=== PATIENT | male | born 1945 | race African-American/Black ===

== ENCOUNTER 2016-03-23 05:30 | Day surgery (SDC) | payer MEDICARE, OTHER ==
[2016-03-22 13:44] LABS: INR 0.94 (0.85-1.17); PROTIME 12.4 SECONDS (11.6-15.0)
[2016-03-22 14:16] LABS: BASOPHILS 0.5 % (0.0-2.0); EOSINOPHILS 5.3 % (0-7); HEMATOCRIT 40.3 % (42.0-54.0); HEMOGLOBIN 13.6 g/dL (13.5-17.5); IMMATURE GRANULOCYTES 0.3 % (0-5); LYMPHOCYTES 38.5 % (15-50); MCHC 33.7 g/dL (31.0-37.0); MEAN PLATELET VOLUME 10.9 fL (7.4-10.4); MONOCYTES 8.2 % (2-11); NEUTROPHILS 47.2 % (40-80); PLATELET COUNT 249 10x3/uL (130-400); RBC 4.53 10x6/uL (4.20-6.10); RDW 15.1 % (11.5-14.5); WBC 6.6 10x3/uL (4.8-10.8)
[~2016-03-23] VITALS: Ht 177.8 cm; Wt 74.8 kg
[~2016-03-23 05:30] MED LIST: ADVAIR 250/501 DISK INH; COMBIVENT RESPIM4 GM INH; NORVASC10 MG PO; PROAIR HFA8.5 GM INH
[2016-03-23] MEDS ORDERED: PREDNISONE10 MG (06:55)
[2016-03-23 07:00] VITALS: BP 148/86; Ht 177.8 cm; Wt 74.8 kg
[2016-03-23] MEDS ORDERED: HYDROCODONE-APA1 TAB PO (10:48)
--- NOTE | 2016-04-07 13:33 | OP ---
PATIENT NAME: MELINA IVORY MEDICAL RECORD: [id number] :45 LOCATION:D.OPS ADMISSION DATE: SURGEON: HERMANN MARTINEZ MD DATE OF OPERATION: 03/23/2016 PREOPERATIVE DIAGNOSES: 1. Lung cancer. 2. Hypercholesterolemia. 3. Chronic obstructive pulmonary disease. 4. Hypertension. POSTOPERATIVE DIAGNOSES: 1. Lung cancer. 2. Hypercholesterolemia. 3. Chronic obstructive pulmonary disease. 4. Hypertension. PROCEDURE: Left subclavian vein PowerPort placement. SURGEON: Hermann Martinez MD. OPERATIVE PROCEDURE: The patient's left chest was prepped and draped in sterile fashion. A needle was used to cannulate the left subclavian vein. The guidewire was advanced with ease. Fluoro was used to note that the wire was in good position in the venous system. A skin incision was made on the left lateral chest and a subcutaneous pouch was made overlying the pectoral fascia. The catheter was then tunneled between this pouch and the wire exit site. The port was sutured to the pectoral fascia using interrupted 2-0 Prolenes. The catheter was then cut with a beveled tip at 21 cm. The dilator trocar device was placed over the wire and the wire and dilator were removed. The catheter tip was advanced through the trocar with ease and the trocar was removed. At this point, the catheter was flushed and it aspirated nonpulsatile dark blood easily. The subcutaneous tissues were reapproximated with interrupted 3-0 Vicryl and the skin was closed with running subcutaneous 5-0 Monocryl. COMPLICATIONS: None. CONDITION: Stable. ANESTHESIA: General endotracheal and local. BLOOD LOSS: Minimal. TRANSINT:[id number] Voice Confirmation ID: [id number] DOCUMENT ID: [id number] HERMANN MATRINEZ MD at 1333 CC: KIMMY FRANK MD, CRISTINO MORGAN MD and ADDISON ALMODOVAR [id number] DICTATION DATE: 03/23/16 1052 DIRECTOR REGULATORY AFFAIRS: 03/23/16 1137 [facility] 03/23/16 [place] [address]
== END 2016-03-23 12:50 | disposition home or self-care (01) ==
LOC: D.OPS 05:30
PROVIDERS: Anesthesiology
DX: C34.90 Malignant neoplasm of unspecified part of unspecified bronchus or lung (principal); E78.00 Pure hypercholesterolemia, unspecified; J44.9 Chronic obstructive pulmonary disease, unspecified; I10 Essential (primary) hypertension

== ENCOUNTER → 2016-03-28 14:09 | Outpatient (CLI) | payer MEDICARE, OTHER ==
[2016-03-23 07:00] VITALS: BMI 23.7
[~2016-03-28 14:09] MED LIST changes: +HYDROCODONE-APA1 TAB PO; +PREDNISONE10 MG
== END | disposition home or self-care (01) ==
LOC: D.RT 03-22 09:00
DX: C34.90 Malignant neoplasm of unspecified part of unspecified bronchus or lung (principal)

== ENCOUNTER → 2016-06-02 08:42 | Outpatient (CLI) | payer MEDICARE, OTHER ==
[2016-03-23 07:00] VITALS: BMI 23.7
== END | disposition home or self-care (01) ==
LOC: D.CT 08:42
DX: C34.90 Malignant neoplasm of unspecified part of unspecified bronchus or lung (principal)

== ENCOUNTER 2016-09-28 11:48 | Emergency (ER) | payer MEDICARE, OTHER ==
[2016-03-23 07:00] VITALS: BMI 23.7
[2016-09-28 13:13] LABS: BASOPHILS 0.3 % (0-2); EOSINOPHILS 0.3 % (0-7); HEMATOCRIT 37.7 % (42.0-54.0); HEMOGLOBIN 13.1 g/dL (13.5-17.5); IMMATURE GRANULOCYTES 0.6 % (0-5); LYMPHOCYTES 13.5 % (15-50); MCHC 34.7 g/dL (31.0-37.0); MCV 89.1 fL (80.0-100.0); MONOCYTES 10.7 % (2-11); NEUTROPHILS 74.6 % (40-80); RBC 4.23 10x6/uL (4.20-6.10); WBC 3.2 10x3/uL (4.8-10.8)
[2016-09-28 13:18] LABS: PLATELET COUNT 193 10x3/uL (130-400)
[2016-09-28 13:35] LABS: ALBUMIN 3.7 g/dL (3.4-5.0); ALKALINE PHOSPHATASE 78 U/L (46-116); ALT (SGPT) 20 U/L (10-68); CALC OSMOLALITY 270 mosm/kg (275-300); CALCIUM 9.2 mg/dL (8.5-10.1); CARBON DIOXIDE 29.7 mmol/L (21.0-32.0); CHLORIDE - SERUM 98 mmol/L (98-107); CREATININE - SERUM 0.9 mg/dL (0.6-1.3); GLUCOSE 121 mg/dL (74-106); POTASSIUM - SERUM 3.7 mmol/L (3.5-5.1); PROTEIN - SERUM 7.4 g/dL (6.4-8.2); SODIUM 136 mmol/L (136-145); UREA NITROGEN 8 mg/dL (7-18); eGFR NON AFRICAN AMERICAN 89 mL/min (90-120)
[2016-09-28 13:45] LABS: CHOL - HDL RATIO 3.6 ratio (2.3-4.9); CHOLESTEROL, TOTAL 235 mg/dL (0-200); CKMB 0.2 U/L (0.0-3.6); CREATINE KINASE 188 UL (21-232); HDL CHOLESTEROL 66 mg/dL (32-96); LDL CHOLESTEROL 160 mg/dL (0-100); LDL-HDL RATIO 2.4 ratio (1.5-3.5); TRIGLYCERIDE 47 mg/dL (30-200); TROPONIN-I < 0.017 ng/mL (0.000-0.060)
== END 2016-09-28 17:00 | disposition home or self-care (01) ==
LOC: D.ER 11:48
PROVIDERS: Emergency Medicine
DX: R07.9 Chest pain, unspecified (principal); I10 Essential (primary) hypertension; J44.9 Chronic obstructive pulmonary disease, unspecified; C34.90 Malignant neoplasm of unspecified part of unspecified bronchus or lung

== ENCOUNTER → 2016-12-22 09:32 | Outpatient (CLI) | payer MEDICARE, OTHER ==
[2016-03-23 07:00] VITALS: BMI 23.7
[~2016-12-22 09:32] MED LIST changes: +BENZONATATE200 MG PO; +COLACE100 MG PO; +ELIQUIS2.5 MG PO; +FLOMAX0.4 MG PO; +FLORAJEN3 CAPS460 MG PO; +FLUTICASONE PRO16 GM NASAL; +MUCINEX DM ER1 EAC1 PO; +OMNICEF300 MG PO; +OXYCODONE HCL5 MG PO; +PROSCAR5 MG PO
== END | disposition home or self-care (01) ==
LOC: D.CT 09:32
DX: C34.90 Malignant neoplasm of unspecified part of unspecified bronchus or lung (principal)

== ENCOUNTER 2017-02-27 13:05 | Inpatient (IN) | payer MEDICARE, OTHER ==
[~2017-02-27] VITALS: Ht 175.3 cm; Wt 74.8 kg
--- NOTE | ~2017-02-27 | OP ---
PATIENT NAME: MELINA IVORY MEDICAL RECORD: [id number] :45 LOCATION:D.MS [id number] ADMISSION DATE:02/27/17 SURGEON: CRISTINO MATUTE, DATE OF OPERATION: 02/28/2017 PROCEDURE PERFORMED: Left total hip arthroplasty. PREOPERATIVE DIAGNOSIS: Left femoral neck fracture. POSTOPERATIVE DIAGNOSIS: Left femoral neck fracture. INDICATIONS: Mr. Ivory is a 71-year-old male who fell onto his left hip approximately 5 days ago. He has been walking on it with somewhat difficulty and had extreme lateral pain, went to his primary care's office, was x-rayed and seen to have a left femoral neck fracture. He is direct admitted and I was consulted. He was given the option of a closed reduction and percutaneous pinning or total hip arthroplasty and explained the risks and benefits of each and he chose to have a total hip put in. After this was explained to him and the risks and benefits of that, he consented to the procedure. DESCRIPTION OF PROCEDURE: The patient was given a block by anesthesia in the preoperative area, taken to the operative suite, laid in the supine position, sedated and then intubated, and given a gram of Ancef preoperatively. He was then moved over to the Walker table. The boots put on and after this was done, the left hip was prepped and draped in sterile fashion. A timeout was performed and everybody was in agreement as the correct side, site and patient. After this was done, the incision commenced over the tensor fascia pipe and the left hip in an oblique fashion. Careful dissection was made down coagulating any bleeders to the tensor fascia, muscle fascia. This was incised and then with the fascia anteriorly and belly posteriorly. Then, the fascia over the rectus was then incised as well and then the rectus was taken medially and the tensor fascia laterally and the vessels of the ascending branch of the lateral femoral circumflex were encountered and tied off and coagulated with the Aquamantys and then cut. After this was done, the hip capsule was encountered. The fat was scraped off of it and Hohmanns were placed around the femoral neck. Capsulotomy was then performed. The capsule was quite thick. After this was done, the femoral neck was cut after the retractors were placed inside the capsule around the femoral neck. The leg was then externally rotated and the femoral head was taken out. After the femoral head was taken out, the acetabulum was exposed. Labrum was taken off as well as the ligamentum teres and the pulvinar. The reaming then began up to a 52. It seemed to be the correct size, reamed line to line and the cup was put into place under fluoroscopy to be in very good position. The liner was then placed on the cup and the femur was then exposed. Hook was put around the femur and the femur was externally rotated, adducted and extended with the traction off. We began broaching and broached up to a 13 and trialled it with a -3 neck and seen to be appropriate length compared to the other side. We then thought we may be able to get to a 14 and we did broach to a 14 and had very good fit with no motion. After the 14 seemed to fit well, we implanted the 14 and put a high offset neck on with a -3 head and the hip was reduced. X-rays were taken and seen to be in good position. No fracture was seen in the femur distally. After this was done, the wound was thoroughly irrigated. The capsule was closed with #2 Ethibond and then Rober was put in. Then, the tensor fascia was closed with 0 Vicryl, two [id number] and then a running stitch locked. Then, the skin was closed with Rober put on top. The tensor fascia pipe was closed with 2-0 OPERATIVE REPORT [id number] MELINA IVORY Vicryl in an inverted interrupted fashion. Prineo was placed over the skin incision, and Telfa and Tegaderm were placed on top of that. Blood loss was approximately 100 mL. The patient tolerated the procedure well, was awakened, and taken to the recovery room in stable condition. Complications were none. TRANSINT:[id number] Voice Confirmation ID: [id number] DOCUMENT ID: [id number] CRISTINO MATUTE DO at 0811 CC: [id number] DICTATION DATE: 02/28/17 1454 AGRONOMY MANAGER: 02/28/17 1805 ADM IN [facility] [address] [place] [address]
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
[~2017-02-27 13:05] MED LIST changes: -BENZONATATE200 MG PO; -COLACE100 MG PO; -ELIQUIS2.5 MG PO; -FLOMAX0.4 MG PO; -FLORAJEN3 CAPS460 MG PO; -FLUTICASONE PRO16 GM NASAL; -MUCINEX DM ER1 EAC1 PO; -OMNICEF300 MG PO; -OXYCODONE HCL5 MG PO; -PROSCAR5 MG PO
[2017-02-27] MEDS ORDERED: BENZONATATE200 MG PO (13:58)
[2017-02-27 16:31] VITALS: BP 146/112
[2017-02-27 18:58] LABS: BASOPHILS 0.3 % (0-2); HEMATOCRIT 31.9 % (42.0-54.0); HEMOGLOBIN 10.4 g/dL (13.5-17.5); IMMATURE GRANULOCYTES 0.3 % (0-5); LYMPHOCYTES 14.5 % (15-50); MCH 29.5 pg (26.0-34.0); MCHC 32.6 g/dL (31.0-37.0); MCV 90.4 fL (80.0-100.0); NEUTROPHILS 69.9 % (40-80); RBC 3.53 10x6/uL (4.20-6.10); WBC 6.7 10x3/uL (4.8-10.8)
[2017-02-27 19:02] LABS: PLATELET COUNT 262 10x3/uL (130-400)
[2017-02-27 19:10] LABS: ALBUMIN 3.1 g/dL (3.4-5.0); ALKALINE PHOSPHATASE 71 U/L (46-116); ALT (SGPT) 21 U/L (10-68); BILIRUBIN - TOTAL 0.35 mg/dL (0.2-1.3); CALC OSMOLALITY 281 mosm/kg (275-300); CALCIUM 9.2 mg/dL (8.5-10.1); CHLORIDE - SERUM 104 mmol/L (98-107); GLUCOSE 92 mg/dL (74-106); PROTEIN - SERUM 6.6 g/dL (6.4-8.2); SODIUM 142 mmol/L (136-145); UREA NITROGEN 10 mg/dL (7-18); eGFR NON AFRICAN AMERICAN 78 mL/min (90-120)
[2017-02-27 19:14] LABS: POTASSIUM - SERUM 2.8 mmol/L (3.5-5.1)
[2017-02-27 20:24] VITALS: BP 117/64
[2017-02-27 23:39] VITALS: BP 107/69
[2017-02-28 00:50] VITALS: BMI 24.4
[2017-02-28 06:46] LABS: CALCIUM 9.1 mg/dL (8.5-10.1); CARBON DIOXIDE 25.8 mmol/L (21.0-32.0); CHLORIDE - SERUM 106 mmol/L (98-107); CREATININE - SERUM 0.9 mg/dL (0.6-1.3); SODIUM 143 mmol/L (136-145); eGFR NON AFRICAN AMERICAN 88 mL/min (90-120)
[2017-02-28 06:54] LABS: PHOSPHOROUS 2.8 mg/dL (2.5-4.9)
[2017-02-28 06:55] LABS: GLUCOSE 98 mg/dL (74-106); MAGNESIUM - SERUM 1.6 mg/dL (1.8-2.4)
[2017-02-28 07:00] LABS: CALC OSMOLALITY 282 mosm/kg (275-300); UREA NITROGEN 7 mg/dL (7-18)
[2017-02-28 07:54] VITALS: BP 125/65
[2017-02-28 11:38] VITALS: BP 125/74
[2017-02-28 13:20] VITALS: BMI 24.3
[2017-02-28 15:59] VITALS: BP 126/69
[2017-02-28 16:01] VITALS: BP 126/69
[2017-02-28 22:12] VITALS: BP 131/80
[2017-03-01 01:32] VITALS: BP 100/63
[2017-03-01 05:10] LABS: BASOPHILS 0 % (0-2); EOSINOPHILS 0 % (0-7); HEMATOCRIT 31.6 % (42.0-54.0); HEMOGLOBIN 10.5 g/dL (13.5-17.5); IMMATURE GRANULOCYTES 0.3 % (0-5); LYMPHOCYTES 4.4 % (15-50); MCH 29.9 pg (26.0-34.0); MCHC 33.2 g/dL (31.0-37.0); MEAN PLATELET VOLUME 9.6 fL (7.4-10.4); MONOCYTES 8.1 % (2-11); NEUTROPHILS 87.2 % (40-80); PLATELET COUNT 243 10x3/uL (130-400); RBC 3.51 10x6/uL (4.20-6.10); RDW 14.9 % (11.5-14.5)
[2017-03-01 05:12] LABS: WBC 11.2 10x3/uL (4.8-10.8)
[2017-03-01 05:59] LABS: ANION GAP 16.7 mmol/L (8-16); CALCIUM 8.7 mg/dL (8.5-10.1); MAGNESIUM - SERUM 1.6 mg/dL (1.8-2.4); POTASSIUM - SERUM 3.7 mmol/L (3.5-5.1)
[2017-03-01 06:00] LABS: CREATININE - SERUM 1.2 mg/dL (0.6-1.3)
[2017-03-01 06:33] VITALS: BP 120/75
[2017-03-01 09:20] VITALS: BP 135/70
[2017-03-01 12:20] VITALS: BP 120/67
[2017-03-01 16:34] VITALS: BP 135/70
[2017-03-01 19:33] LABS: APPEARANCE CLEAR (CLEAR); COLOR YELLOW (YELLOW); NITRITE NEGATIVE (NEGATIVE); PROTEIN NEGATIVE (NEGATIVE); SPECIFIC GRAVITY 1.005 (1.005-1.020)
[2017-03-01 19:34] LABS: BILIRUBIN NEGATIVE (NEGATIVE); GLUCOSE NEGATIVE (NEGATIVE); KETONE MODERATE mg/dL (NEGATIVE); UROBILINOGEN NORMAL (NORMAL)
[2017-03-01 19:36] LABS: BACTERIA FEW /hpf (NONE SEEN); WHITE CELLS - URINE OCC /hpf (0-5)
[2017-03-01 20:54] VITALS: BP 95/55
[2017-03-02] VITALS (7 sets, daily range): BP systolic 100–137; BP diastolic 61–70
[2017-03-02 06:48] LABS: CALC OSMOLALITY 276 mosm/kg (275-300); CARBON DIOXIDE 27.4 mmol/L (21.0-32.0); CHLORIDE - SERUM 102 mmol/L (98-107); CREATININE - SERUM 0.9 mg/dL (0.6-1.3); GLUCOSE 126 mg/dL (74-106); MAGNESIUM - SERUM 1.5 mg/dL (1.8-2.4); PHOSPHOROUS 1.7 mg/dL (2.5-4.9); SODIUM 138 mmol/L (136-145); UREA NITROGEN 9 mg/dL (7-18); eGFR NON AFRICAN AMERICAN 88 mL/min (90-120)
[2017-03-02 06:52] LABS: POTASSIUM - SERUM 2.8 mmol/L (3.5-5.1)
[2017-03-02 07:06] LABS: BASOPHILS 0 % (0-2); EOSINOPHILS 0.6 % (0-7); HEMATOCRIT 27.2 % (42.0-54.0); HEMOGLOBIN 9.3 g/dL (13.5-17.5); IMMATURE GRANULOCYTES 0.3 % (0-5); LYMPHOCYTES 7.3 % (15-50); MCH 30.4 pg (26.0-34.0); MCHC 34.2 g/dL (31.0-37.0); MCV 88.9 fL (80.0-100.0); MEAN PLATELET VOLUME 9.8 fL (7.4-10.4); NEUTROPHILS 80.8 % (40-80); PLATELET COUNT 215 10x3/uL (130-400); RBC 3.06 10x6/uL (4.20-6.10); RDW 14.8 % (11.5-14.5); WBC 10.1 10x3/uL (4.8-10.8)
[2017-03-03] VITALS: BP 160/67
[2017-03-03 04:00] VITALS: BP 111/67
[2017-03-03 05:43] LABS: CALC OSMOLALITY 274 mosm/kg (275-300); CARBON DIOXIDE 27.8 mmol/L (21.0-32.0); CHLORIDE - SERUM 103 mmol/L (98-107); CREATININE - SERUM 0.9 mg/dL (0.6-1.3); GLUCOSE 116 mg/dL (74-106); MAGNESIUM - SERUM 1.6 mg/dL (1.8-2.4); POTASSIUM - SERUM 3.1 mmol/L (3.5-5.1); SODIUM 138 mmol/L (136-145); UREA NITROGEN 7 mg/dL (7-18); eGFR NON AFRICAN AMERICAN 88 mL/min (90-120)
[2017-03-03 05:47] LABS: BASOPHILS 0.1 % (0-2); EOSINOPHILS 3.6 % (0-7); HEMATOCRIT 25.5 % (42.0-54.0); HEMOGLOBIN 8.4 g/dL (13.5-17.5); IMMATURE GRANULOCYTES 0.1 % (0-5); LYMPHOCYTES 11.1 % (15-50); MCH 29.4 pg (26.0-34.0); MCHC 32.9 g/dL (31.0-37.0); MCV 89.2 fL (80.0-100.0); MEAN PLATELET VOLUME 9.2 fL (7.4-10.4); NEUTROPHILS 74.1 % (40-80); PLATELET COUNT 188 10x3/uL (130-400); RBC 2.86 10x6/uL (4.20-6.10); RDW 14.7 % (11.5-14.5); WBC 8.7 10x3/uL (4.8-10.8)
[2017-03-03 12:23] VITALS: BP 114/58
[2017-03-03 15:48] VITALS: BP 116/63
[2017-03-03 20:00] VITALS: BP 110/64
[2017-03-03 23:53] VITALS: BP 111/63
[2017-03-04 05:10] VITALS: BP 115/77
[2017-03-04 05:49] LABS: HEMATOCRIT 24.6 % (42.0-54.0); HEMOGLOBIN 8.4 g/dL (13.5-17.5); LYMPHOCYTES 9.9 % (15-50); MCH 30.5 pg (26.0-34.0); MCHC 34.1 g/dL (31.0-37.0); MCV 89.5 fL (80.0-100.0); MEAN PLATELET VOLUME 9.5 fL (7.4-10.4); NEUTROPHILS 73.4 % (40-80); PLATELET COUNT 215 10x3/uL (130-400); RBC 2.75 10x6/uL (4.20-6.10); RDW 15.7 % (11.5-14.5); WBC 6.3 10x3/uL (4.8-10.8)
[2017-03-04 05:50] LABS: CALC OSMOLALITY 273 mosm/kg (275-300); CALCIUM 8.1 mg/dL (8.5-10.1); CARBON DIOXIDE 29.2 mmol/L (21.0-32.0); CHLORIDE - SERUM 105 mmol/L (98-107); CREATININE - SERUM 0.8 mg/dL (0.6-1.3); GLUCOSE 107 mg/dL (74-106); SODIUM 138 mmol/L (136-145); UREA NITROGEN 6 mg/dL (7-18); eGFR NON AFRICAN AMERICAN > 90 mL/min (90-120)
[2017-03-04 05:51] LABS: POTASSIUM - SERUM 3.5 mmol/L (3.5-5.1)
[2017-03-04 08:42] VITALS: BP 120/67
[2017-03-04 12:21] VITALS: Ht 175.3 cm; Wt 74.8 kg
[2017-03-04 12:27] VITALS: BP 132/69
[2017-03-04 13:32] LABS: % SATURATION 12 % (15-55); IRON 19 ug/dl (35-150); TOTAL IRON BIND CAPACITY 149 ug/dl (260-445); UNSAT IRON BIND CAPACITY 130 ug/dl (150-375)
[2017-03-04 16:30] VITALS: BP 127/69
[2017-03-04 20:00] VITALS: BP 136/68
[2017-03-05] VITALS: BP 118/69
[2017-03-05 04:00] VITALS: BP 114/67
[2017-03-05 05:48] LABS: BASOPHILS 0.3 % (0-2); EOSINOPHILS 6.4 % (0-7); HEMATOCRIT 24.3 % (42.0-54.0); IMMATURE GRANULOCYTES 0.2 % (0-5); LYMPHOCYTES 12.9 % (15-50); MCH 29.1 pg (26.0-34.0); MCHC 32.9 g/dL (31.0-37.0); MCV 88.4 fL (80.0-100.0); MEAN PLATELET VOLUME 9.6 fL (7.4-10.4); MONOCYTES 13.6 % (2-11); NEUTROPHILS 66.6 % (40-80); PLATELET COUNT 238 10x3/uL (130-400); RBC 2.75 10x6/uL (4.20-6.10); RDW 14.9 % (11.5-14.5); WBC 5.8 10x3/uL (4.8-10.8)
[2017-03-05 06:18] LABS: CALC OSMOLALITY 272 mosm/kg (275-300); CALCIUM 8.4 mg/dL (8.5-10.1); CARBON DIOXIDE 27.1 mmol/L (21.0-32.0); CHLORIDE - SERUM 104 mmol/L (98-107); CREATININE - SERUM 0.8 mg/dL (0.6-1.3); GLUCOSE 106 mg/dL (74-106); POTASSIUM - SERUM 3.3 mmol/L (3.5-5.1); SODIUM 138 mmol/L (136-145); UREA NITROGEN 5 mg/dL (7-18); eGFR NON AFRICAN AMERICAN > 90 mL/min (90-120)
[2017-03-05 08:45] VITALS: BP 124/77
[2017-03-05 11:22] LABS: POTASSIUM - SERUM 3.6 mmol/L (3.5-5.1); VANCOMYCIN - TROUGH 8.3 ug/mL (10.0-20.0)
[2017-03-05 12:37] VITALS: BP 122/81
[2017-03-05 17:51] VITALS: BP 120/64
[2017-03-05 20:00] VITALS: BP 118/69
[2017-03-06 04:00] VITALS: BP 115/68
[2017-03-06 04:53] LABS: BASOPHILS 0 % (0-2); EOSINOPHILS 7.2 % (0-7); HEMATOCRIT 24.3 % (42.0-54.0); HEMOGLOBIN 8.4 g/dL (13.5-17.5); IMMATURE GRANULOCYTES 0.2 % (0-5); LYMPHOCYTES 15.7 % (15-50); MCH 30.9 pg (26.0-34.0); MCHC 34.6 g/dL (31.0-37.0); MCV 89.3 fL (80.0-100.0); MEAN PLATELET VOLUME 9.6 fL (7.4-10.4); MONOCYTES 11.6 % (2-11); NEUTROPHILS 65.3 % (40-80); PLATELET COUNT 241 10x3/uL (130-400); RBC 2.72 10x6/uL (4.20-6.10); RDW 14.7 % (11.5-14.5); WBC 5.7 10x3/uL (4.8-10.8)
[2017-03-06 05:12] LABS: CALC OSMOLALITY 276 mosm/kg (275-300); CALCIUM 8.8 mg/dL (8.5-10.1); CARBON DIOXIDE 27.8 mmol/L (21.0-32.0); CHLORIDE - SERUM 105 mmol/L (98-107); CREATININE - SERUM 0.8 mg/dL (0.6-1.3); GLUCOSE 117 mg/dL (74-106); POTASSIUM - SERUM 3.5 mmol/L (3.5-5.1); SODIUM 139 mmol/L (136-145); UREA NITROGEN 6 mg/dL (7-18); eGFR NON AFRICAN AMERICAN > 90 mL/min (90-120)
[2017-03-06 08:25] LABS: FOLATE (FOLIC ACID) - SERUM 3.1 ng/mL (>3.0)
[2017-03-06 09:29] VITALS: BP 141/75
[2017-03-06] MEDS ORDERED: ELIQUIS2.5 MG PO (10:55)
[2017-03-06] MEDS ORDERED: MUCINEX DM ER1 EAC1 PO (10:56)
[2017-03-06] MEDS ORDERED: FLUTICASONE PRO16 GM NASAL (10:56)
[2017-03-06] MEDS ORDERED: COLACE100 MG PO (10:56)
[2017-03-06] MEDS ORDERED: PROSCAR5 MG PO (10:57)
[2017-03-06] MEDS ORDERED: OMNICEF300 MG PO (11:00)
[2017-03-06] MEDS ORDERED: FLORAJEN3 CAPS460 MG PO (11:01)
[2017-03-06] MEDS ORDERED: FLOMAX0.4 MG PO (11:02)
[2017-03-06] MEDS ORDERED: OXYCODONE HCL5 MG PO (13:50)
== END 2017-03-06 14:35 | disposition home or self-care (01) | DRG 469 ==
LOC: D.MS 13:05
PROVIDERS: Family Medicine; Internal Medicine Nephrology; Internal Medicine Pulmonary Disease; Legal Medicine; Orthopaedic Surgery
PROC: 0SRB0JZ Replacement of Left Hip Joint with Synthetic Substitute, Open Approach (ICD-10-PCS; principal; 2017-02-28 12:00)
DX: S72.002A Fracture of unspecified part of neck of left femur, initial encounter for closed fracture (principal); J18.9 Pneumonia, unspecified organism; J96.11 Chronic respiratory failure with hypoxia; C34.12 Malignant neoplasm of upper lobe, left bronchus or lung; J44.0 Chronic obstructive pulmonary disease with (acute) lower respiratory infection; J98.11 Atelectasis; W19.XXXA Unspecified fall, initial encounter; I10 Essential (primary) hypertension; J30.9 Allergic rhinitis, unspecified; F41.9 Anxiety disorder, unspecified; J20.9 Acute bronchitis, unspecified; D64.9 Anemia, unspecified; R50.82 Postprocedural fever; E87.6 Hypokalemia; E78.5 Hyperlipidemia, unspecified; E88.01 Alpha-1-antitrypsin deficiency; N40.1 Benign prostatic hyperplasia with lower urinary tract symptoms; R33.8 Other retention of urine; R00.0 Tachycardia, unspecified; Z87.891 Personal history of nicotine dependence

== ENCOUNTER 2017-03-29 05:40 | Day surgery (SDC) | payer MEDICARE, OTHER | END 2017-03-29 09:35 | disposition home or self-care (01) | LOC: D.OPS 05:40 | DX: R97.20 Elevated prostate specific antigen [PSA] (principal); R33.8 Other retention of urine; N40.1 Benign prostatic hyperplasia with lower urinary tract symptoms; J44.9 Chronic obstructive pulmonary disease, unspecified; I10 Essential (primary) hypertension; Z01.812 Encounter for preprocedural laboratory examination ==

== ENCOUNTER → 2017-05-23 13:31 | Outpatient (CLI) | payer MEDICARE, OTHER ==
[2017-03-29 06:11] VITALS: BMI 24.5
[~2017-05-23 13:31] MED LIST changes: +BENZONATATE200 MG PO; +COLACE100 MG PO; +CRESTOR10 MG PO; +ELIQUIS2.5 MG PO; +FLOMAX0.4 MG PO; +FLORAJEN3 CAPS460 MG PO; +FLUTICASONE PRO16 GM NASAL; +FUROSEMIDE20 MG PO; +MUCINEX DM ER1 EAC1 PO; +OMNICEF300 MG PO; +OXYCODONE HCL5 MG PO; +POTASSIUM CHLO20 MEQ PO; +PROSCAR5 MG PO
== END | disposition home or self-care (01) ==
LOC: D.US 13:30
DX: R22.1 Localized swelling, mass and lump, neck (principal); R60.0 Localized edema

== ENCOUNTER 2017-06-07 09:44 | Emergency (ER) | payer MEDICARE, OTHER ==
[2017-03-29 06:11] VITALS: BMI 24.5
[2017-06-07 11:09] LABS: HEMATOCRIT 24.5 % (42.0-54.0); MCH 27.1 pg (26.0-34.0); MCHC 32.7 g/dL (31.0-37.0); MCV 83.1 fL (80.0-100.0); MEAN PLATELET VOLUME 9.6 fL (7.4-10.4); RBC 2.95 10x6/uL (4.20-6.10); RDW 18.1 % (11.5-14.5); WBC 3.2 10x3/uL (4.8-10.8)
[2017-06-07 11:32] LABS: PLATELET COUNT 165 10x3/uL (130-400)
[2017-06-07 11:35] LABS: INR 1.44 (0.85-1.17)
[2017-06-07 11:36] LABS: APTT 42.9 SECONDS (22.8-39.4); EOSINOPHILS 3 % (0-7); LYMPHOCYTES 30 % (15-50); MONOCYTES 13 % (2-11); NEUTROPHILS 53 % (40-80); PLATELET ESTIMATE NORMAL
[2017-06-07 11:39] LABS: ALBUMIN 2.5 g/dL (3.4-5.0); ALKALINE PHOSPHATASE 61 U/L (46-116); ALT (SGPT) 24 U/L (10-68); BILIRUBIN - TOTAL 0.41 mg/dL (0.2-1.3); CALC OSMOLALITY 271 mosm/kg (275-300); CALCIUM 8.6 mg/dL (8.5-10.1); CARBON DIOXIDE 26.9 mmol/L (21.0-32.0); CHLORIDE - SERUM 99 mmol/L (98-107); GLUCOSE 119 mg/dL (74-106); POTASSIUM - SERUM 3.2 mmol/L (3.5-5.1); PROTEIN - SERUM 6.9 g/dL (6.4-8.2); SODIUM 136 mmol/L (136-145); UREA NITROGEN 11 mg/dL (7-18); eGFR NON AFRICAN AMERICAN 78 mL/min (90-120)
[2017-06-07 11:48] LABS: CREATINE KINASE 25 UL (21-232)
[2017-06-07 11:52] LABS: TROPONIN-I < 0.017 ng/mL (0.000-0.060)
== END 2017-06-07 14:55 | disposition home or self-care (01) ==
LOC: D.ER 09:44
PROVIDERS: Emergency Medicine
DX: J18.9 Pneumonia, unspecified organism (principal); R07.81 Pleurodynia; C34.90 Malignant neoplasm of unspecified part of unspecified bronchus or lung; Z86.718 Personal history of other venous thrombosis and embolism; E87.6 Hypokalemia

== ENCOUNTER → 2017-10-16 12:55 | Outpatient (CLI) | payer MEDICARE, OTHER ==
[2017-03-29 06:11] VITALS: BMI 24.5
== END | disposition home or self-care (01) ==
LOC: D.MRI 12:55
DX: M54.16 Radiculopathy, lumbar region (principal)

== ENCOUNTER 2018-04-16 23:28 | Inpatient (IN) | payer MEDICARE, OTHER ==
[~2018-04-16] VITALS: Ht 175.3 cm; Wt 53.6 kg
[2018-04-16] MEDS ORDERED: LIPITOR10 MG PO (23:44)
[2018-04-16] MEDS ORDERED: FOLIC ACID1 MG PO (23:44)
[2018-04-16] MEDS ORDERED: SINGULAIR10 MG PO (23:45)
[2018-04-16] MEDS ORDERED: PROSCAR5 MG PO (23:45)
[2018-04-16] MEDS ORDERED: DECADRON4 MG PO (23:46)
[2018-04-16] MEDS ORDERED: MEGACE40 MG PO (23:46)
[2018-04-16] MEDS ORDERED: KLOR-CON 1010 MEQ PO (23:47)
[2018-04-16] MEDS ORDERED: ELIQUIS2.5 MG PO (23:47)
[2018-04-16] MEDS ORDERED: ULTRAM50 MG PO (23:47)
[2018-04-16] MEDS ORDERED: FLOMAX0.4 MG PO (23:47)
[2018-04-17] VITALS (23 sets, daily range): BP systolic 110–158; BP diastolic 63–96; Ht 175.3 cm; Wt 53.6 kg
[2018-04-17] LABS: HEMATOCRIT 27.2 % (42.0-54.0); HEMOGLOBIN 8.4 g/dL (13.5-17.5); LYMPHOCYTES 5.7 % (15-50); MCH 27.2 pg (26.0-34.0); MCHC 30.9 g/dL (31.0-37.0); MEAN PLATELET VOLUME 8.8 fL (7.4-10.4); NEUTROPHILS 84.9 % (40-80); RBC 3.09 10x6/uL (4.20-6.10); RDW 20.8 % (11.5-14.5); WBC 7.3 10x3/uL (4.8-10.8)
[2018-04-17 00:03] LABS: PLATELET COUNT 567 10x3/uL (130-400)
[2018-04-17 00:08] LABS: INR 1.37 (0.85-1.17); PROTIME 16.3 SECONDS (11.6-15.0)
[2018-04-17 00:21] LABS: APPEARANCE CLEAR (CLEAR); BILIRUBIN NEGATIVE (NEGATIVE); COLOR YELLOW (YELLOW); GLUCOSE NEGATIVE (NEGATIVE); KETONE NEGATIVE (NEGATIVE); NITRITE NEGATIVE (NEGATIVE); PROTEIN 2+ mg/dL (NEGATIVE); UROBILINOGEN NORMAL (NORMAL)
[2018-04-17 00:24] LABS: BACTERIA FEW /hpf (NONE SEEN); EPITHELIAL CELLS 0-5 /hpf (0-5); HYALINE CAST 0-5 /lpf (NONE SEEN); RED CELLS - URINE 0-5 /hpf (0-5); WHITE CELLS - URINE 0-5 /hpf (0-5)
[2018-04-17 00:31] LABS: ALBUMIN 2.5 g/dL (3.4-5.0); ALKALINE PHOSPHATASE 95 U/L (46-116); ALT (SGPT) 19 U/L (10-68); CALC OSMOLALITY 286 mosm/kg (275-300); CALCIUM 9.4 mg/dL (8.5-10.1); CARBON DIOXIDE 31.9 mmol/L (21.0-32.0); CHLORIDE - SERUM 99 mmol/L (98-107); CKMB 4.8 U/L (0.0-3.6); CREATINE KINASE 213 UL (21-232); CREATININE - SERUM 1.3 mg/dL (0.6-1.3); GLUCOSE 131 mg/dL (74-106); LIPASE 78 U/L (73-393); MAGNESIUM - SERUM 1.6 mg/dL (1.8-2.4); PRO BNP 2665 pg/mL (0-125); PROTEIN - SERUM 7.9 g/dL (6.4-8.2); SODIUM 142 mmol/L (136-145); UREA NITROGEN 19 mg/dL (7-18); eGFR NON AFRICAN AMERICAN 58 mL/min (90-120)
--- NOTE | 2018-04-17 00:37 | NUR ---
ANTIBIOTIC STARTED AFTER BLOOD CULTURES WERE DRAWN BY LAB
[2018-04-17 00:39] LABS: POTASSIUM - SERUM 2.7 mmol/L (3.5-5.1)
--- NOTE | 2018-04-17 01:34 | NUR ---
PT GONE TO CT
--- NOTE | 2018-04-17 02:08 | NUR ---
PT RETURNED FROM CT
--- NOTE | 2018-04-17 02:55 | NUR ---
NOTIFIED DR. MATTHEWS THAT PT FAMILY WANTED TO SPEAK WITH HIM.
--- NOTE | 2018-04-17 04:50 | NUR ---
PT RECEIVED FROM ER VIA BED ACCOMPANIED BY STAFF. ASSISTED INTO BED CONNECTED TO STANDARD ICU MONITORS WITH ALL ALARMS SET AND VERIFIED. ORIENTED TO ROOM AND CALL LIGHT LEFT IN HAND. PT CONFUSED WITH SPEECH DIFFICULT TO UNDERSTAND. LOOSE NONPRODUCTIVE COUGH NOTED. WHEN REPEATED SELF SPEECH CLEARS AND ABLE TO EASILY BE UNDERSTOOD BUT PT CONTINUES TO BE CONFUSED. PT IS IN VIEW OF NURSES STATION BED IN LOW POSITION. UNABLE TO OBTAIN HISTORY. DID SPEAK WITH THE AND SHE WILL BE IN THIS AM TO COMPLETE ADMISSION HISTORY. WHEN REPORT WAS CALLED FROM ER DR. MATTHEWS STATED HE WILL CALL DR. BOLANOS AND CONSULT HIM ON THIS PT AND ICU IS TO CALL DR. FLYNN A COURTESY CONSULT. PT HAS AT SOME POINT RECEIVED CHEMO FROM DR. FLYNN FOR DX LUNG CA. DR. FLYNN CONSULT TO BE CALLED DURING OFFICE HOURS PER DR MATTHEWS
--- NOTE | 2018-04-17 07:00 | NUR ---
SHIFT ASSESSMENT COMPLETED, PT CARE ASSUMED, MONITORS ON AND WORKING, CALL LIGHT WITHIN REACH, WILL CONTINUE TO OBSERVE.
--- NOTE | 2018-04-17 09:00 | NUR ---
PT TURNED AND REPOSITIONED FOR COMFORT, NO SIGNS/SYMPTOMS OF PAIN OR DISCOMFORT NOTED AT THIS TIME, CALL LIGHT WITHIN REACH, WILL CONTINUE TO OBSERVE.
[2018-04-17 10:32] LABS: MAGNESIUM - SERUM 1.8 mg/dL (1.8-2.4)
[2018-04-17 10:35] LABS: POTASSIUM - SERUM 2.8 mmol/L (3.5-5.1)
--- NOTE | 2018-04-17 11:00 | NUR ---
NO CHANGES, MONITORS ON AND WORKING, VITALS STABLE SEE FLOW SHEET FOR FURTHER DETAILS. FAMILY AT BEDSIDE, UPDATE PROVIDED, CALL LIGHT WITHIN REACH WILL CONTINUE TO OBSERVE.
--- NOTE | 2018-04-17 13:00 | NUR ---
PT TURNED AND REPOSITIONED FOR COMFORT, FAMILY AT BEDSIDE, UPDATE PROVIDED. NO SIGNS/SYMPTOMS OF PAIN OR DISCOMFORT NOTED, CALL LIGHT WITHIN REACH, WILL CONTINUE TO OBSERVE.
--- NOTE | 2018-04-17 15:00 | NUR ---
NO CHANGES, SEE FLOW SHEET FOR FURTHER DETAILS. WILL CONTINUE TO OBSERVE. MONITORS ON AND WORKING, VITALS STABLE, WILL CONTINUE TO OBSERVE.
--- NOTE | 2018-04-17 17:00 | NUR ---
FAMILY AT BEDSIDE, UPDATE PROVIDED. PT AWAKE AND ALERT, MONITORS ON AND WORKING, PT CONTINUES TO BE SINUS TACHYCARDIA, PT DENIES ANY COMPLAINT OF PAIN OR DISCOMFORT AT THIS TIME. CALL LIGHT WTIHIN REACH, WILL CONTINUE TO OBSERVE.
[2018-04-18] VITALS (24 sets, daily range): BP systolic 108–146; BP diastolic 65–95
[2018-04-18 00:09] LABS: MAGNESIUM - SERUM 1.5 mg/dL (1.8-2.4)
[2018-04-18 00:11] LABS: POTASSIUM - SERUM 2.9 mmol/L (3.5-5.1)
--- NOTE | 2018-04-18 07:00 | NUR ---
SHIFT ASSESSMENT COMPLETED,PT CARE ASSUMED. MONITORS ON AND WORKING VITALS STABLE, PT AWAKE AND ALERT, NO SIGNS/SYMPTOMS OF PAIN OR DISCOMFORT NOTED, SEE FLOW SHEET FOR FURTHER DETAILS. CALL LIGHT WITHIN REACH, WILL CONTINUE TO OBSERVE.
[2018-04-18 07:02] LABS: BASOPHILS 0.1 % (0-2); EOSINOPHILS 0.5 % (0-7); HEMATOCRIT 26.5 % (42.0-54.0); IMMATURE GRANULOCYTES 1.3 % (0-5); LYMPHOCYTES 8.5 % (15-50); MCH 26.6 pg (26.0-34.0); MCHC 30.2 g/dL (31.0-37.0); MEAN PLATELET VOLUME 9.7 fL (7.4-10.4); MONOCYTES 9.1 % (2-11); NEUTROPHILS 80.5 % (40-80); PLATELET COUNT 503 10x3/uL (130-400); RBC 3.01 10x6/uL (4.20-6.10); RDW 20.8 % (11.5-14.5); WBC 8.6 10x3/uL (4.8-10.8)
[2018-04-18 07:09] LABS: CALC OSMOLALITY 289 mosm/kg (275-300); CALCIUM 8.4 mg/dL (8.5-10.1); CARBON DIOXIDE 36.5 mmol/L (21.0-32.0); CHLORIDE - SERUM 105 mmol/L (98-107); GLUCOSE 94 mg/dL (74-106); POTASSIUM - SERUM 3.3 mmol/L (3.5-5.1); SODIUM 146 mmol/L (136-145); eGFR NON AFRICAN AMERICAN 78 mL/min (90-120)
[2018-04-18 07:15] LABS: UREA NITROGEN 11 mg/dL (7-18)
--- NOTE | 2018-04-18 09:00 | NUR ---
PT CLEANED X 2 FROM BM, LINEN CHANGE, PT AWAKE AND ALERT, FAMILY AT BEDSIDE, UPDATE PROVIDED. MONITORS ON AND WORKING. CALLL LIGHT WITHIN REACH WILL CONTINUE TO OBSERVE.
--- NOTE | 2018-04-18 11:00 | NUR ---
FAMILY AT BEDSIDE, UPDATE PROVIDED, NO CHANGES, SEE FLOW SHEET FOR FURTHER DETIALS. WILL CONTINUE TO OBSERVE.
--- NOTE | 2018-04-18 11:54 | EC ---
PATIENT:MELINA IVORY DATE OF SERVICE: 04/17/18 SEX: M MEDICAL RECORD: [id number] DATE OF : [birth year] LOCATION:[facility] D230 AGE OF PATIENT: 72 ADMISSION DATE: 04/17/18 REFERRING PHYSICIAN: INTERPRETING PHYSICIAN: SHE BOLANOS MD ECHOCARDIOGRAM REPORT ECHO CHARGES Date: CLINICAL DIAGNOSIS: ECHOCARDIOGRAPHIC MEASUREMENTS (adult normal given) AC root (d.<3.7cm) cm LV Septum d (<1.2 cm> cm Valve Excursion cm LV Septum (systole) cm Left Atria (s.<4.0cm> cm LVPW d(<1.2cm) cm RV (d.<2.3cm) cm LVPW (sytole) cm LV diastole(<5.6CM) cm MV E-F(>70mm/sec) cm LV systole cm LVOT Diameter cm MV exc.(>10mm) cm Est.ejection fraction (50-75%) % DOPPLER: LVIT cm/sec A cm/sec E cm/sec LA cm/sec RVSP mmHg LVOT cm/sec AOP1/2T m/s Asc. Ao cm/sec RVOT cm/sec RA cm/sec PA cm/sec AV Gradient Peak mmHg AV Mean mmHg AV Area cm MV Gradient Peak mmHg MV Mean mmHg MV Area cm COMMENTS: Clerk General: Performance Analyst: MARK# Pericardial Effusion DATE OF SERVICE: PROCEDURE: Echocardiogram. FINDINGS: 1. Left ventricular chamber size is within normal limits. Left ventricular systolic function is mildly reduced, overall ejection fraction in the 40% range. 2. Left atrium, right atrium, and right ventricle chamber sizes are within normal limits. 3. Valvular structures have normal structure and motion. ECHOCARDIOGRAM REPORT [id number] MELINA IVORY 4. Doppler interrogation reveals only moderate tricuspid regurgitation, no other valvular insufficiency or stenosis. Pulmonary systolic pressure is elevated, estimated at 50 mmHg. 5. No evidence of pericardial effusion or left ventricular thrombus. TRANSINT:[id number] Voice Confirmation ID: [id number] DOCUMENT ID: [id number] SHE BOLANOS MD at 1154 CC: [id number] DICTATION DATE: 04/17/18 1134 FINANCIAL CONTROLLER: 04/17/18 1149 ADM IN [address] [place] [address]
--- NOTE | 2018-04-18 13:00 | NUR ---
PT TURNED AND REPOSITIONED, MONITORS ON AND WORKING. PT AWAKE AND ALERT, NO SIGNS/SYMPTOMS OF PAIN OR DISCOMFORT NOTED AT THIS TIME, CALL LIGHT WITHIN REACH, WILL CONTINUE TO OBSERVE.
--- NOTE | 2018-04-18 15:00 | NUR ---
PT RESTING CALMLY IN BED, MONITORS ON AND WORKING, VITALS STABLE, CALL LIGHT WITHIN REACH, NO CHANGES, SEE FLOW SHEET FOR FURTHER DETAILS. WILL CONTINUE TO OBSERVE.
--- NOTE | 2018-04-18 15:35 | MORECARE ---
CASE MANAGEMENT DISCHARGE SUMMARY PATIENT: MELINA IVORY UNIT: [id number] ADM DATE: 04/17/18 AGE: 72 : 45 SEX: M ROOM/BED: D.2304 AUTHOR: MEREDITH WILSON PHYSICIAN: REFERRING PHYSICIAN: MELANIE BRADLEY MD DATE OF SERVICE: 04/18/18 Discharge Plan Patient Name: MELINA IVORY [facility] [facility] 1945 Planned Disposition: Home Anticipated Discharge Date: Discharge Date: Expected LOS: Initial Reviewer: [email or web address] Initial Review Date: 04/17/2018 Generated: 04/18/18 4:35 pm Patient Name: MELINA IVORY Page [id number] at 1535 All edits/amendments must be made on the electronic document DICTATION DATE: 04/18/18 1534 CAR ICER: NEHA 04/18/18 1534 RPT#: [id number] DC DATE: STATUS: ADM IN [facility] [address] [place] [address] END OF REPORT
--- NOTE | 2018-04-18 15:48 | MORECARE ---
CASE MANAGEMENT DISCHARGE SUMMARY PATIENT: MELINA IVORY UNIT: [id number] ADM DATE: 04/17/18 AGE: 72 : 45 SEX: M ROOM/BED: D.2304 AUTHOR: MEREDITH WILSON PHYSICIAN: REFERRING PHYSICIAN: MELANIE BRADLEY MD DATE OF SERVICE: 04/18/18 Discharge Plan Patient Name: MELINA IVORY [facility] [facility] 1945 Planned Disposition: Home Anticipated Discharge Date: Discharge Date: Expected LOS: Initial Reviewer: [email or web address] Initial Review Date: 04/17/2018 Generated: 04/18/18 4:48 pm DCPIA - Discharge Planning Initial Assessment Updated by [email or web address]: Liya Holley on 04/18/18 3:35 pm * Is the patient Alert and Oriented? Yes * How many steps to enter\exit or inside your home? * PCP Tomas * Pharmacy [facility] * Preadmission Environment Home with Family * ADLs Independent * Equipment Oxygen * List name and contact numbers for known caregivers / representatives who currently or will assist patient after discharge: Aggie Burger -daughter- [phone] Gabriella Rico -daughter- [phone] * Verbal permission to speak to the caregivers and representatives has been obtained from the patient. Yes * Community resources currently utilized None * Additional services required to return to the preadmission environment? No * Can the patient safely return to the preadmission environment? Yes * Has this patient been hospitalized within the prior 30 days at any hospital? No Last DP export: 04/18/18 2:35 pm Patient Name: MELINA IVORY Page 60057 at 1548 All edits/amendments must be made on the electronic document DICTATION DATE: 04/18/181546 MANAGER WINTER: NEHA 04/18/181546 RPT#: [id number] DC DATE: STATUS: ADM IN [facility] [address] [place] [address] END OF REPORT
--- NOTE | 2018-04-18 15:58 | MORECARE ---
CASE MANAGEMENT DISCHARGE SUMMARY PATIENT: MELINA IVORY UNIT: [id number] ADM DATE: 04/17/18 AGE: 72 : 45 SEX: M ROOM/BED: D.2304 AUTHOR: STEVE,DOC PHYSICIAN: REFERRING PHYSICIAN: MELANIE BRADLEY MD DATE OF SERVICE: 04/18/18 Discharge Plan Patient Name: MELINA IVORY Facility: [facility]:[place] : 1945 Planned Disposition: Home Anticipated Discharge Date: Discharge Date: Expected LOS: Initial Reviewer: [email or web address] Initial Review Date: 04/17/2018 Generated: 04/18/18 4:58 pm Comments DCP- Discharge Planning Updated by [email or web address]: Liya Holley on 04/18/18 2:[address] Patient Name: MELINA IVORY Admission Status: ER Accout number: [id number] Admission Date: 04-17-2018 : 1945 Admission Diagnosis: Attending: MELANIE BRADLEY Current LOS: 1 Anticipated DC Date: Planned Disposition: Home Primary Insurance: MEDICARE A & B Discharge Planning Comments: CM met with patient and family at bedside after obtaining verbal consent. Patient lives @ home with his spouse. Daughter Aggie states that the patient has home 02 but doesn't use it. He doesn't have portable 02. Aggie states that the day patient was brought into hospital she was checking into [facility] [phone]. CM called [facility] and spoke with Eboni she stated that unless patient has ad terminal makeup operator care coverage then their services would be private pay. CM will relay that information to the family. CM will continue to follow and assist as needed with discharge planning needs. Distribution Spec: Liya Holley DCPIA - Discharge Planning Initial Assessment Updated by [email or web address]: Liya Holley on 04/18/18 3:35 pm * Is the patient Alert and Oriented? Yes * How many steps to enter\exit or inside your home? * PCP Marin * Pharmacy [facility] * Preadmission Environment Home with Family * ADLs Independent * Equipment Oxygen * List name and contact numbers for known caregivers / representatives who currently or will assist patient after discharge: Aggie Burger -daughter- [phone] Gabriella Rico -daughter- [phone] * Verbal permission to speak to the caregivers and representatives has been obtained from the patient. Yes * Community resources currently utilized None * Additional services required to return to the preadmission environment? No * Can the patient safely return to the preadmission environment? Yes * Has this patient been hospitalized within the prior 30 days at any hospital? No Last DP export: 04/18/18 2:48 pm Patient Name: MELINA IVORY Page [id number] at 1558 All edits/amendments must be made on the electronic document DICTATION DATE: 04/18/181556 COIL INSPECTOR: NEHA 04/18/181556 RPT#: [id number] DC DATE: STATUS: ADM IN [facility] [address] [place] [address] END OF REPORT
--- NOTE | 2018-04-18 17:00 | NUR ---
NO CHANGES, FAMILY AT BEDSIDE UPDATE PROVIDED. WILL CONTINUE TO OBSERVE.
--- NOTE | 2018-04-18 19:45 | NUR ---
PT RECEIVED UP WALKING YELLING OUT. UPON ASSESSMENT PT HAD BM. LINENS CHANGED WITH PERICARE PROVIDED. PT BACK IN BED. 10 MINUTES LATER PT UP WITH ANOTHER BM NOTED WITH PAD AND FITTED SHEET CHANGED AND PERICARE PROVIDED. PT BEGINS YELLING OUT AGAIN AND HAS A SMEAR ON PAD. PAD REMOVED AND PT ASKED TO GET IN BED HE STATES THAT HE NEEDS TO PEE, PT WITH CATHETER, REEDUCATED TO CATHETER, PT UP TO BED. N/C REAPPLIED. WILL CONTINUE TO OBSERVE.
[2018-04-19] VITALS (13 sets, daily range): BP systolic 009–153; BP diastolic 73–103
--- NOTE | 2018-04-19 01:14 | NUR ---
DAUGHTER CALLED AND GAVE PASSWORD. UPDATE GIVEN AND QUESTIONS ANSWERED.
--- NOTE | 2018-04-19 02:10 | NUR ---
PT AWOKE AND PULLED OF ECG LEAD AND DIANA STATLOCK, N/C AND B/P CUFF. PT SITTING ON SIDE OF BED. ECG REPLACED SPO2 89% WITH N/C PLACE BACK ON PT. PT YELLING OUT A NURSES PASSING BY. REORIENTED TO PLACE AND TIME. PT BACK IN BED COVERED WITH BLANKETS. PT CALM. WILL CONTINUE TO OBSERVE.
--- NOTE | 2018-04-19 03:11 | NUR ---
REASSESSMENT COMPLETED, SEE FLOW SHEET. WILL CONTINUE TO OBSERVE.
--- NOTE | 2018-04-19 03:58 | NUR ---
PT UP TO SIDE OF BED. REMOVED ECG, N/C, BP CUFF, AND SPO2 MONITOR. ASSISTED BACK TO BED AND PLACED BACK ON MONITOR. COVERED WITH BLANKETS. PT CALM AT THIS TIME. WILL CONTINUE TO OBSERVE.
--- NOTE | 2018-04-19 06:21 | NUR ---
PT YELLING OUT. UPON ASSESSMENT PT REMOVED ECG, B/P CUFF, N/C, SPO2 MONITOR. N/C REPLACED AND PLACE BACK ON MONITOR. WILL CONTINUE TO OBSERVE
--- NOTE | 2018-04-19 07:00 | NUR ---
SHIFT ASSESSMENT COMPLETED, PT CARE ASSUMED. MONITORS ON AND WORKING, VITALS STABLE, PT AWAKE AND ALERT, NO SIGNS/SYMPTOMS OF PAIN OR DISCOMFORT NOTED AT THIS TIME. WILL CONTINUE TO OBSERVE.
[2018-04-19 07:40] LABS: BASOPHILS 0.1 % (0-2); EOSINOPHILS 0.8 % (0-7); HEMATOCRIT 25.5 % (42.0-54.0); HEMOGLOBIN 7.6 g/dL (13.5-17.5); IMMATURE GRANULOCYTES 2.1 % (0-5); LYMPHOCYTES 6.7 % (15-50); MCH 26.6 pg (26.0-34.0); MCHC 29.8 g/dL (31.0-37.0); MCV 89.2 fL (80.0-100.0); MEAN PLATELET VOLUME 9.5 fL (7.4-10.4); MONOCYTES 7.8 % (2-11); NEUTROPHILS 82.5 % (40-80); PLATELET COUNT 451 10x3/uL (130-400); RBC 2.86 10x6/uL (4.20-6.10); RDW 20.8 % (11.5-14.5)
[2018-04-19 07:53] LABS: CALC OSMOLALITY 295 mosm/kg (275-300); CALCIUM 8.5 mg/dL (8.5-10.1); CARBON DIOXIDE 34.7 mmol/L (21.0-32.0); CHLORIDE - SERUM 108 mmol/L (98-107); CREATININE - SERUM 0.9 mg/dL (0.6-1.3); GLUCOSE 108 mg/dL (74-106); POTASSIUM - SERUM 3.7 mmol/L (3.5-5.1); SODIUM 149 mmol/L (136-145); UREA NITROGEN 10 mg/dL (7-18); eGFR NON AFRICAN AMERICAN 88 mL/min (90-120)
[2018-04-19 07:55] LABS: WBC 10.9 10x3/uL (4.8-10.8)
--- NOTE | 2018-04-19 09:00 | NUR ---
FAMILY AT BEDSIDE, UPDATE PROVIDED, PT SITTING UP IN BED EATING BREAKFAST. MONITORS ON AND WORKING, VITALS STABLE, CALL LIGHT WITHIN REACH, WILL CONTINUE TO OBSERVE.
--- NOTE | 2018-04-19 09:17 | NUR ---
Nutrition follow-up: Diet: Regular as tolerated PO intake ~55% average of some meals; pt continues to be confused/nurse +BM Labs reviewed Wt: 108# (bedscale) RDN will order Ensure with meals to increase kcal, protein intake. May consider starting an appetite stimulant and/or PEG tube placement and nutrition support started due to continued weight loss. RDN following.
[2018-04-19 09:50] LABS: % SATURATION 11 % (15-55); IRON 18 ug/dl (35-150); TOTAL IRON BIND CAPACITY 152 ug/dl (260-445); UNSAT IRON BIND CAPACITY 134 ug/dl (150-375)
--- NOTE | 2018-04-19 11:09 | NUR ---
PATEINT TRANSFER FROM ICU. TRANSFER IN BED VIA ICU PERSONNEL. VSS. DIANA CATHETER IN PLACE. O2 AT 3L. PATIENT DENIES ANY NEEDS OR PAIN. WILL CONTINUE WITH PLAN OF CARE. SR UP BED IN LOW POSTION AND CALL LIGHT IN REACH.
--- NOTE | 2018-04-19 11:16 | NUR ---
PATIENT REFUSED TO WEAR TELEMETRY UNIT.
--- NOTE | 2018-04-19 11:50 | NUR ---
ORDERS RECIEVED TO TRANSFUSE 2 UNITS PRBC'S. PATIENT IS STABLE AND VSS. INFUSION STARTED AT 50 ML/HR. INFUSION FOR 15 MINS WTIHOUT SIDE EFFECTS. VSS. PATIENT IN NO DISTRESS. INCREASED IN FUSION TO 100 ML/HR. WILL CONTINUE TO MONITOR CLOSLEY.SR UP X 2 BED IN LOW POSITION AND CALL LIGHT IN REACH.
--- NOTE | 2018-04-19 14:50 | NUR ---
INFUSION COMPLETE. VSS. NO DISTRESS NOTED. PATIENT DENIES ANY NEEDS OR PAIN. WILL BEGIN 2ND INFUSION SHORTLY. SR UP X 2 BED IN LOW POSITION AND CALL LIGHT IN REACH.
--- NOTE | 2018-04-19 15:05 | NUR ---
INFUSION STARTED 2ND UNIT OF BLOOD. VSS. PATIENT STABLE AND DENIES ANY NEEDS OR PAIN. INFUSING AT 50 ML FOR 15 MINUTES. NO DISTRESS NOTED VSS. INCREASED TO 100 ML/HR. WILL CONTINUE TO MONITOR. SR UP X 2 BED IN LOW POSTION AND CALL LIGHT IN REACH.
--- NOTE | 2018-04-19 15:45 | NUR ---
DAUGHTER AT BEDSIDE. VSS. PATIENT IS STABLE . WILL CONTINUE TO MONITOR.
--- NOTE | 2018-04-19 19:45 | NUR ---
PT LAYING IN BED WITH EYES CLOSED RR EVEN AND UNLABORED. NO S/S OF DISTRESS. AT BEDSIDE. WILL CONTINUE TO MONITOR.
--- NOTE | 2018-04-19 22:00 | NUR ---
PT HAD BOWEL MOVEMENT SITTING ON SIDE OF BED. CHANGED LINENS AND CLEANED PT UP. BED ALARM IN PLACE AT BEDSIDE. WILL CONTINUE TO MONITOR.
--- NOTE | 2018-04-19 23:01 | NUR ---
PT REFUSES TO KEEP TELEMETRY ON. PT KEEPS PULLING OFF X4. AT BEDSIDE SLEEPING. CALL LIGHT WITHIN REACH WILL CONTINUE TO MONITOR.
[2018-04-20] VITALS: BP 156/84
--- NOTE | 2018-04-20 00:30 | NUR ---
PT PULLED OUT 20G IV TO LEFT ARM. CATHETER TIP WAS IN PLACE. WILL CONTINUE TO MONITOR.
--- NOTE | 2018-04-20 02:52 | NUR ---
PT RESTING WITH EYES CLOSED. RR SHALLOW AND UNLABORED. NO S/S OF DISTRESS. AT BEDSIDE, BED ALARM IN PLACE, CALL LIGHT WITHIN REACH, WILL CONTINUE TO MONIOR.
--- NOTE | 2018-04-20 03:13 | NUR ---
I have reviewed this patient and I concur with the Shift Assessment completed by the Licensed Practical Nurse today this shift.
[2018-04-20 04:00] VITALS: BP 134/85
[2018-04-20 06:42] LABS: BASOPHILS 0.1 % (0-2); EOSINOPHILS 1.3 % (0-7); IMMATURE GRANULOCYTES 1.5 % (0-5); LYMPHOCYTES 4.8 % (15-50); MCH 27.9 pg (26.0-34.0); MCHC 31.3 g/dL (31.0-37.0); MCV 89.2 fL (80.0-100.0); MEAN PLATELET VOLUME 9.1 fL (7.4-10.4); MONOCYTES 6.7 % (2-11); NEUTROPHILS 85.6 % (40-80); RDW 19.1 % (11.5-14.5); WBC 11.7 10x3/uL (4.8-10.8)
[2018-04-20 06:43] LABS: HEMATOCRIT 30.7 % (42.0-54.0); HEMOGLOBIN 9.6 g/dL (13.5-17.5); PLATELET COUNT 296 10x3/uL (130-400); RBC 3.44 10x6/uL (4.20-6.10)
[2018-04-20 07:05] LABS: CALC OSMOLALITY 293 mosm/kg (275-300); CALCIUM 8.3 mg/dL (8.5-10.1); CARBON DIOXIDE 36.5 mmol/L (21.0-32.0); CHLORIDE - SERUM 108 mmol/L (98-107); CREATININE - SERUM 0.8 mg/dL (0.6-1.3); GLUCOSE 120 mg/dL (74-106); POTASSIUM - SERUM 3.5 mmol/L (3.5-5.1); SODIUM 148 mmol/L (136-145); UREA NITROGEN 10 mg/dL (7-18); eGFR NON AFRICAN AMERICAN > 90 mL/min (90-120)
--- NOTE | 2018-04-20 07:15 | NUR ---
REPORT RECIEVED AND MORNING ROUNDING COMPLETE. PT SITTING ON THE SIDE OF HIS BED. TRYING TO PULL OUT HIS DIANA CATH. EXPLAINED TO HIM ABOUT THE MACHINICS OF HOW THAT WORKS AND THAT HE COULD HURT HIS PENIS BY DOING THAT. PT STATES HE WILL LEAVE IT ALONE FROM NOW ON. ASSISTED PT INTO PUTTING HIS NASAL CANNULA BACK ON. 02 SET ON 3L. NO THER NEEDS AT THIS TIME CALL LIGHT WITHIN REACH AND BED IN THE LOWEST POSITION.
[2018-04-20 08:59] VITALS: BP 119/75
[2018-04-20 11:30] VITALS: BP 147/79
[2018-04-20 15:30] VITALS: BP 139/82
--- NOTE | 2018-04-20 16:00 | NUR ---
REMOVED PT'S FOLE CATH PER NURSE DRIVEN PROTOCOL. PT TOLERATED WELL. ASSISTED PT BACK TO BED CALL LIGTH WITHIN REACH AND BED IN LOWEST POSITION.
--- NOTE | 2018-04-20 16:24 | NUR ---
AGRRE WITH ERP CONSULTANT ASSESSMENT
[2018-04-20 20:00] VITALS: BP 115/88
--- NOTE | 2018-04-20 20:10 | NUR ---
RECIEVED UP AMBULATING OUT OF ROOM WITH O2 ON. DIRECTED BACK TO HIS ROOM. WHEN REENTERING ROOM HE WAS ON BEDSIDE COMMODE. STRAIGHTEN BED UP AND ASSISTED BACK TO BED. DENIES ANY OTHER NEEDS. PLACED O2 BACK ON . O2 @ 3LITERS. NO IV ACCESS. REPORTED REFUSES IV, TELEMETRY AND F/C.
[2018-04-21] VITALS: BP 115/88; BP 133/88
[2018-04-21 04:00] VITALS: BP 131/80
[2018-04-21 07:30] VITALS: BP 144/80
[2018-04-21 07:44] LABS: ALBUMIN 2.6 g/dL (3.4-5.0); ALKALINE PHOSPHATASE 83 U/L (46-116); ALT (SGPT) 19 U/L (10-68); BILIRUBIN - TOTAL 0.53 mg/dL (0.2-1.3); CALC OSMOLALITY 288 mosm/kg (275-300); CALCIUM 8.6 mg/dL (8.5-10.1); CARBON DIOXIDE 31.1 mmol/L (21.0-32.0); CHLORIDE - SERUM 106 mmol/L (98-107); GLUCOSE 87 mg/dL (74-106); MAGNESIUM - SERUM 1.5 mg/dL (1.8-2.4); PROTEIN - SERUM 7.3 g/dL (6.4-8.2); SODIUM 147 mmol/L (136-145); UREA NITROGEN 8 mg/dL (7-18)
[2018-04-21 07:45] LABS: CREATININE - SERUM 0.5 mg/dL (0.6-1.3); POTASSIUM - SERUM 4.4 mmol/L (3.5-5.1); eGFR NON AFRICAN AMERICAN > 90 mL/min (90-120)
[2018-04-21 11:30] VITALS: BP 122/78
[2018-04-21 13:49] LABS: HEMATOCRIT 33.2 % (42.0-54.0); HEMOGLOBIN 10.5 g/dL (13.5-17.5); MCH 27.7 pg (26.0-34.0); MCHC 31.6 g/dL (31.0-37.0); MCV 87.6 fL (80.0-100.0); PLATELET COUNT 330 10x3/uL (130-400); RBC 3.79 10x6/uL (4.20-6.10); RDW 19.1 % (11.5-14.5)
[2018-04-21 13:50] LABS: NEUTROPHILS 83.6 % (40-80); WBC 15.5 10x3/uL (4.8-10.8)
[2018-04-21 13:51] LABS: BASOPHILS 0.2 % (0-2); EOSINOPHILS 1.4 % (0-7); LYMPHOCYTES 5.8 % (15-50)
[2018-04-21 15:30] VITALS: BP 147/93
--- NOTE | 2018-04-21 16:00 | NUR ---
UP AMBULATING IN ROOM. ENCOURAGE TO LAY BACK IN BED WITH OXYGEN ORDERED. REFUSE TELEMETRY. EKG STRIP SHOWN TO FABIANA AND PLACED ON CHART. FAMILY ARRIVES IN ROOM. DENIES ANY NEEDS. CONTINUE PLAN OF CARE AND SAFETY PRECAUTIONS. DAUGHTER INFORMS ALLERGY TO LIPITOR. DC MEDICATION ORDERED TO PREVENT REACTION.
--- NOTE | 2018-04-21 19:50 | NUR ---
RECIEVED SITTING UP ON SIDE OF BED WITH DINNER IN FRONT OF HIM ON OVERBED TABLE. ATTEMPT TO GET HIM TO EAT UNSUCESSFUL. REFUSES TO WEAR YELLOW GOWN AND WEARS HIS PAJAMAS. ALERT AND ORIENTED TO PERSON ONLY. O2 @ 3LITERS PER N/C. DENIES ANY NEEDS. CALLS OUT TO ANYONE THAT WALKS PAST HIS ROOM.
[2018-04-21 21:53] VITALS: BP 131/68
--- NOTE | 2018-04-22 00:18 | NUR ---
PT CAME TO DOOR WAY OF ROOM AND URINATED IN HALLWAY . THAN WENT BACK TO BED.
[2018-04-22 04:53] VITALS: BP 128/62
[2018-04-22 06:10] LABS: BASOPHILS 0.1 % (0-2); EOSINOPHILS 1.5 % (0-7); HEMATOCRIT 33.2 % (42.0-54.0); HEMOGLOBIN 10.2 g/dL (13.5-17.5); IMMATURE GRANULOCYTES 0.8 % (0-5); LYMPHOCYTES 6.5 % (15-50); MCH 27.9 pg (26.0-34.0); MCHC 30.7 g/dL (31.0-37.0); MEAN PLATELET VOLUME 9.7 fL (7.4-10.4); MONOCYTES 8.3 % (2-11); NEUTROPHILS 82.8 % (40-80); PLATELET COUNT 361 10x3/uL (130-400); RBC 3.65 10x6/uL (4.20-6.10); RDW 19.6 % (11.5-14.5)
[2018-04-22 06:21] LABS: ALBUMIN 2.1 g/dL (3.4-5.0); ALKALINE PHOSPHATASE 64 U/L (46-116); ALT (SGPT) 17 U/L (10-68); BILIRUBIN - TOTAL 0.32 mg/dL (0.2-1.3); CALC OSMOLALITY 287 mosm/kg (275-300); CALCIUM 8.6 mg/dL (8.5-10.1); CHLORIDE - SERUM 105 mmol/L (98-107); GLUCOSE 87 mg/dL (74-106); MAGNESIUM - SERUM 1.4 mg/dL (1.8-2.4); PROTEIN - SERUM 6.6 g/dL (6.4-8.2); SODIUM 146 mmol/L (136-145); UREA NITROGEN 8 mg/dL (7-18)
[2018-04-22 06:22] LABS: CREATININE - SERUM 0.7 mg/dL (0.6-1.3); POTASSIUM - SERUM 3.2 mmol/L (3.5-5.1); eGFR NON AFRICAN AMERICAN > 90 mL/min (90-120)
[2018-04-22 06:59] LABS: WBC 10.6 10x3/uL (4.8-10.8)
[2018-04-22 08:50] VITALS: BP 148/75
[2018-04-22 11:53] VITALS: BP 124/82
--- NOTE | 2018-04-22 14:00 | NUR ---
ALERT AND ORIENTED TO PERSON AND PLACE. ANXIOUS TO GO HOME. ENCOURAGE TO USE URINAL TO OBTAIN UA ORDERED. FAMILY REQUESTING NEUROLOGY REFERRAL. ENCOURAGED TO NOTIFY PCP PER CHANDRAKANT MCCARTHY. DENIES ANY OTHER NEEDS. CONTINUE PLAN OF CARE AND SAFETY PRECAUTIONS.
[2018-04-22 15:42] VITALS: BP 132/77
--- NOTE | 2018-04-22 19:19 | NUR ---
RECIEVED UP IN CHAIR WITH EYES CLOSED. O2 @ 3 LITERS PER N/C IN PLACE. EASILY AROUSES WITH VERBAL STIMULI. CONFUSED TO PLACE, TIME AND SITUATION. DENIES ANY NEEDS AT THIS TIME. NO S/S OF DISTRESS OBSERVED.
[2018-04-22 21:03] VITALS: BP 144/84
[2018-04-23] VITALS: BP 135/82
--- NOTE | 2018-04-23 02:12 | NUR ---
SPOUSE AT BEDSIDE AT THIS TIMJE. PT UP IN BED WITH EYES CLOSED. NO S/S OF DISTRESSOBSERVED.
[2018-04-23 06:25] VITALS: BP 141/77
[2018-04-23 07:26] LABS: BASOPHILS 0.1 % (0-2); EOSINOPHILS 0.9 % (0-7); HEMATOCRIT 32.8 % (42.0-54.0); HEMOGLOBIN 9.9 g/dL (13.5-17.5); IMMATURE GRANULOCYTES 0.4 % (0-5); LYMPHOCYTES 3.7 % (15-50); MCH 27.5 pg (26.0-34.0); MCHC 30.2 g/dL (31.0-37.0); MCV 91.1 fL (80.0-100.0); MEAN PLATELET VOLUME 10.2 fL (7.4-10.4); MONOCYTES 7.3 % (2-11); NEUTROPHILS 87.6 % (40-80); PLATELET COUNT 333 10x3/uL (130-400); RDW 19.3 % (11.5-14.5)
[2018-04-23 07:39] LABS: WBC 14.2 10x3/uL (4.8-10.8)
[2018-04-23 07:44] LABS: ALBUMIN 2.3 g/dL (3.4-5.0); ALKALINE PHOSPHATASE 68 U/L (46-116); ALT (SGPT) 18 U/L (10-68); BILIRUBIN - TOTAL 0.29 mg/dL (0.2-1.3); CALC OSMOLALITY 288 mosm/kg (275-300); CALCIUM 8.6 mg/dL (8.5-10.1); CARBON DIOXIDE 33.9 mmol/L (21.0-32.0); CHLORIDE - SERUM 106 mmol/L (98-107); CREATININE - SERUM 0.8 mg/dL (0.6-1.3); GLUCOSE 122 mg/dL (74-106); MAGNESIUM - SERUM 1.5 mg/dL (1.8-2.4); POTASSIUM - SERUM 3.9 mmol/L (3.5-5.1); PROTEIN - SERUM 6.3 g/dL (6.4-8.2); SODIUM 145 mmol/L (136-145); UREA NITROGEN 11 mg/dL (7-18); eGFR NON AFRICAN AMERICAN > 90 mL/min (90-120)
[2018-04-23 09:13] VITALS: BP 124/86
--- NOTE | 2018-04-23 11:10 | NUR ---
ALERT AND ORIENTED TO PERSON AND PLACE. REFUSE IV. Mg REPLACED PO. REFUSE TELEMETRY. EKG OBTAIN AND REPORTED TO CHANDRAKANT MCCARTHY. FAMILY AT BEDSIDE. PATIENT CONTINUES ASKING WHEN THE DISCHARGE IS READY. EXPLAIN NO DISCHARGE ORDERED. DENIES ANY OTHER NEEDS. CONTINUE PLAN OF CARE AND SAFETY PRECAUTIONS.
[2018-04-23 13:13] VITALS: BP 106/65
--- NOTE | 2018-04-23 14:54 | NUR ---
Nutrition follow-up: RDN has visited with pt during rounds. Pt asking when he will get to go home. Diet: Regular as tolerated PO intake ~50% of some meals; pt refusing some meals Labs reviewed Wt: 118# +BM Pt confused per nursing. RDN will continue to encourage increased po intake. RDN following.
--- NOTE | 2018-04-23 17:00 | MORECARE ---
CASE MANAGEMENT DISCHARGE SUMMARY PATIENT: MELINA IVORY UNIT: [id number] ADM DATE: 04/17/18 AGE: 72 : 45 SEX: M ROOM/BED: D.2111 AUTHOR: STEVE,DOC PHYSICIAN: REFERRING PHYSICIAN: MELANIE BRADLEY MD DATE OF SERVICE: 04/23/18 Discharge Plan Patient Name: MELINA IVORY Facility: [facility]:[place] : 1945 Planned Disposition: Home Anticipated Discharge Date: 04/24/18 Discharge Date: Expected LOS: 7 Initial Reviewer: [id number] Initial Review Date: 04/17/2018 Generated: 04/23/18 6:00 pm Comments DCP- Discharge Planning Updated by [email or web address]: Liya Holley on 04/18/18 1:[address] Patient Name: MELINA IVORY Admission Status: ER Accout number: [id number] Admission Date: 04-17-2018 : 1945 Admission Diagnosis: Attending: MELANIE BRADLEY Current LOS: 1 Anticipated DC Date: Planned Disposition: Home Primary Insurance: MEDICARE A & B Discharge Planning Comments: CM met with patient and family at bedside after obtaining verbal consent. Patient lives @ home with his spouse. Daughter Aggie states that the patient has home 02 but doesn't use it. He doesn't have portable 02. Aggie states that the day patient was brought into hospital she was checking into [facility] [phone]. CM called [facility] and spoke with Eboni she stated that unless patient has terminal clerk care coverage then their services would be private pay. CM will relay that information to the family. CM will continue to follow and assist as needed with discharge planning needs. Sanitation Inspector: Liya Holley DCPIA - Discharge Planning Initial Assessment Updated by [id number]: Liya Holley on 04/18/18 3:35 pm * Is the patient Alert and Oriented? Yes * How many steps to enter\exit or inside your home? * PCP [facility] * Pharmacy [facility] [address] * Preadmission Environment Home with Family * ADLs Independent * Equipment Oxygen * List name and contact numbers for known caregivers / representatives who currently or will assist patient after discharge: Aggie Burger -daughter- [phone] Gabriella Rico -daughter- [phone] * Verbal permission to speak to the caregivers and representatives has been obtained from the patient. Yes * Community resources currently utilized None * Additional services required to return to the preadmission environment? No * Can the patient safely return to the preadmission environment? Yes * Has this patient been hospitalized within the prior 30 days at any hospital? No Last DP export: 04/18/18 1:58 pm Patient Name: MELINA IVORY Page [id number] at 1700 All edits/amendments must be made on the electronic document DICTATION DATE: 04/23/181658 AVIONICS INTEGRATION ENGINEER: NEHA 04/23/181658 RPT#: [id number] DC DATE: STATUS: ADM IN [facility] [address] [place] [address] END OF REPORT
--- NOTE | 2018-04-23 17:07 | MORECARE ---
CASE MANAGEMENT DISCHARGE SUMMARY PATIENT: MELINA IVORY UNIT: [id number] ADM DATE: 04/17/18 AGE: 72 : 45 SEX: M ROOM/BED: D.2111 AUTHOR: MEREDITH WILSON PHYSICIAN: REFERRING PHYSICIAN: MELANIE BRADLEY MD DATE OF SERVICE: 04/23/18 Discharge Plan Patient Name: MELINA IVORY Facility: [facility]:[place] : 1945 Planned Disposition: Home Anticipated Discharge Date: 04/24/18 Discharge Date: Expected LOS: 7 Initial Reviewer: [email or web address] Initial Review Date: 04/17/2018 Generated: 04/23/18 6:07 pm Comments DCP- Discharge Planning Updated by [email or web address]: Kevin Finnegan on 04/23/18 4:[address] Patient Name: MELINA IVORY Encounter No: [id number] : 1945 Primary Insurance: MEDICARE A & B Anticipated DC Date: 04-24-2018 Planned Disposition: Home DCP follow-up note: CM RECEIVED ORDER FOR REHAB OR HOME NEEDS. CM MET WITH PT AND SPOUSE IN ROOM. MELINA IVORY provided verbal consent to discuss current and ongoing needs with/in the presence of: SPOUSE, LIYAH. CM DISCUSSED AVAILABILITY OF REHAB SERVICES, PROVIDERS AND LOCATIONS. PT DOES NOT WANT REHAB, STATES HE IS GOING HOME. PT'S SPOUSE FEELS PT NEEDS REHAB. CM REVIEWED CHART NOTES. PT WAS WALKING 20 FEET WITH 25 PERCENT ASSISTANCE BUT REFUSED THERAPY ON 04-21 AND 04-22. CM EXPLAINED THAT PT WILL NOT BE ACCEPTED FOR REHAB ANYWHERE IF REFUSING THERAPY. PT STATES HE DID NOT REFUSE THERAPY AND WILL SHOW CM WHEN THERAPY COMES AGAIN TODAY THAT HE CAN WALK WELL ENOUGH TO GO HOME. CM DISCUSSED HOME HEALTH. PT DOES NOT THINK HE NEEDS HOME HEALTH EITHER. PT'S SPOUSE REPORTS PT HAS BEEN IN REHAB BEFORE AND WILL ENCOURAGE PT TO PARTICIPATE IN REHAB SERVICES. IMPORTANT MESSAGE FROM MEDICARE PROVIDED AND EXPLAINED. PT PLANS TO DISCHARGE HOME WITH SPOUSE, DENIES DISCHARGE NEEDS. Kevin Finnegan CASE MANAGEMENT DCP- Discharge Planning Updated by [email or web address]: Liya Holley on 04/18/18 1:[address] Patient Name: MELINA IVORY Admission Status: ER Accout number: [id number] Admission Date: 04-17-2018 : 1945 Admission Diagnosis: Attending: MELANIE BRADLEY Current LOS: 1 Anticipated DC Date: Planned Disposition: Home Primary Insurance: MEDICARE A & B Discharge Planning Comments: CM met with patient and family at bedside after obtaining verbal consent. Patient lives @ home with his spouse. Daughter Aggie states that the patient has home 02 but doesn't use it. He doesn't have portable 02. Aggie states that the day patient was brought into hospital she was checking into [facility] [phone]. CM called [facility] and spoke with Eboni she stated that unless patient has terminal operations supervisor care coverage then their services would be private pay. CM will relay that information to the family. CM will continue to follow and assist as needed with discharge planning needs. Test Lead: Liya Holley DCPIA - Discharge Planning Initial Assessment Updated by [id number]: Liya Holley on 04/18/18 3:35 pm * Is the patient Alert and Oriented? Yes * How many steps to enter\exit or inside your home? * PCP [place] * Pharmacy [facility] * Preadmission Environment Home with Family * ADLs Independent * Equipment Oxygen * List name and contact numbers for known caregivers / representatives who currently or will assist patient after discharge: Aggie Burger -daughter- [phone] Gabriella Rico -daughter- [phone] * Verbal permission to speak to the caregivers and representatives has been obtained from the patient. Yes * Community resources currently utilized None * Additional services required to return to the preadmission environment? No * Can the patient safely return to the preadmission environment? Yes * Has this patient been hospitalized within the prior 30 days at any hospital? No Last DP export: 04/23/18 4:00 p Patient Name: MELINA IVORY Page 93469 at 1707 All edits/amendments must be made on the electronic document DICTATION DATE: 04/23/181705 DIAGRAMMER AND SEAMER: NEHA 04/23/181705 RPT#: [id number] DC DATE: STATUS: ADM IN [facility] [address] [place] [address] END OF REPORT
--- NOTE | 2018-04-23 17:15 | MORECARE ---
CASE MANAGEMENT DISCHARGE SUMMARY PATIENT: MELINA IVORY UNIT: [id number] ADM DATE: 04/17/18 AGE: 72 : 45 SEX: M ROOM/BED: D.2111 AUTHOR: MEREDITH WILSON PHYSICIAN: REFERRING PHYSICIAN: MELANIE BRADLEY MD DATE OF SERVICE: 04/23/18 Discharge Plan Patient Name: MELINA IVORY Facility: [facility]:[place] : 1945 Planned Disposition: Home Anticipated Discharge Date: 04/24/18 Discharge Date: Expected LOS: 7 Initial Reviewer: [email or web address] Initial Review Date: 04/17/2018 Generated: 04/23/18 6:15 pm Comments DCP- Discharge Planning Updated by [id number]: Kevin Alvarez on 04/23/18 4:[address] Patient Name: MELINA IVORY Encounter No: [id number] : 1945 Primary Insurance: MEDICARE A & B Anticipated DC Date: 04-24-2018 Planned Disposition: Home DCP follow-up note: CM RECEIVED ORDER FOR REHAB OR HOME NEEDS. CM MET WITH PT AND SPOUSE IN ROOM. MELINA IVORY provided verbal consent to discuss current and ongoing needs with/in the presence of: SPOUSE, LIYAH. CM DISCUSSED AVAILABILITY OF REHAB SERVICES, PROVIDERS AND LOCATIONS. PT DOES NOT WANT REHAB, STATES HE IS GOING HOME. PT'S SPOUSE FEELS PT NEEDS REHAB. CM REVIEWED CHART NOTES. PT WAS WALKING 20 FEET WITH 25 PERCENT ASSISTANCE BUT REFUSED THERAPY ON 04-21 AND 04-22. CM EXPLAINED THAT PT WILL NOT BE ACCEPTED FOR REHAB ANYWHERE IF REFUSING THERAPY. PT STATES HE DID NOT REFUSE THERAPY AND WILL SHOW CM WHEN THERAPY COMES AGAIN TODAY THAT HE CAN WALK WELL ENOUGH TO GO HOME. CM DISCUSSED HOME HEALTH. PT DOES NOT THINK HE NEEDS HOME HEALTH EITHER. PT'S SPOUSE REPORTS PT HAS BEEN IN REHAB BEFORE AND WILL ENCOURAGE PT TO PARTICIPATE IN REHAB SERVICES. IMPORTANT MESSAGE FROM MEDICARE PROVIDED AND EXPLAINED. PT PLANS TO DISCHARGE HOME WITH SPOUSE, DENIES DISCHARGE NEEDS. Kevin Alvarez, CASE MANAGEMENT Appended by Kevin Alvarez on 04/23/2018 17:12 CDT: CM REVIEWED THERAPY NOTES, PT WALKED 150 FEET WITH 20 PERCENT ASSISTANCE WITH GOOD BALANCE NOTED. CM MET WITH PT IN ROOM. PT REPORTS TO CM THAT HE IS NOT GOING TO REHAB IN THE HOSPITAL OR HOME, HE IS GOING HOME TOMORROW. CM DISCUSSED AVAILABILTIY OF HOME HEALTH SERVICES. PT DECLINED HOME HEALTH REPORTING BOTH OF HIS DAUGHTERS ARE NURSES AND ASSIST HIM AT HOME. CM ASKED PT TO NOTIFY CM IF HE CHANGES HIS MIND OR HAS ANY NEEDS FOR DISCHARGE. PT DECLINES REHAB SERVICES INPATIENT AND SENIOR CARE. PT DECLINES HOME HEALTH. PT REPORTS HE WILL DISCHARGE HOME TOMORROW WITH HIS , REPORTS HAVING ADULT DAUGHTERS TO ASSIST HOME IF NEEDED. CM TO CONTINUE TO FOLLOW AND ASSIST IF NEEDED. KEVIN ALVAREZ, CASE MANAGEMENT DCP- Discharge Planning Updated by [id number]: Liya Holley on 04/18/18 1:[address] Patient Name: MELINA IVORY Admission Status: ER Accout number: [id number] Admission Date: 04-17-2018 : 1945 Admission Diagnosis: Attending: MELANIE BRADLEY Current LOS: 1 Anticipated DC Date: Planned Disposition: Home Primary Insurance: MEDICARE A & B Discharge Planning Comments: CM met with patient and family at bedside after obtaining verbal consent. Patient lives @ home with his spouse. Daughter Aggie states that the patient has home 02 but doesn't use it. He doesn't have portable 02. Aggie states that the day patient was brought into hospital she was checking into [facility] [phone]. CM called [facility] and spoke with Eboni she stated that unless patient has termite inspector care coverage then their services would be private pay. CM will relay that information to the family. CM will continue to follow and assist as needed with discharge planning needs. Wheat Shipper: Liya Holley DCPIA - Discharge Planning Initial Assessment Updated by [email or web address]: Liya Holley on 04/18/18 3:35 pm * Is the patient Alert and Oriented? Yes * How many steps to enter\exit or inside your home? * PCP T[facility] * [facility] * Preadmission Environment Home with Family * ADLs Independent * Equipment Oxygen * List name and contact numbers for known caregivers / representatives who currently or will assist patient after discharge: Aggie Burger -daughter- [phone] Gabriella Rico -daughter- [phone] * Verbal permission to speak to the caregivers and representatives has been obtained from the patient. Yes * Community resources currently utilized None * Additional services required to return to the preadmission environment? No * Can the patient safely return to the preadmission environment? Yes * Has this patient been hospitalized within the prior 30 days at any hospital? No Coverage Notice Reviewer: [id number] Sheela Brown Kain Notice Issued Date-Time: 04/23/2018 9:20 Notice Type: IM Discharge Notice Notice Delivered To: Patient Relationship to Patient: Chair Pad Maker Name: Delivery Method: HAND - Hand Delivered Tawnya Days: Prior Verbal Notification: Recipient Understood Notice: Yes Recipient Signature: Yes Med Rec Note Co-signed by Attending: Coverage Notice Comment: Last DP export: 04/23/18 4:07 p Patient Name: MELINA IVORY Page 12939 at 1715 All edits/amendments must be made on the electronic document DICTATION DATE: 04/23/181714 STITCH BURNISHER: NEHA 04/23/181714 RPT#: [id number] DC DATE: STATUS: ADM IN [facility] [address] [place] [address] END OF REPORT
--- NOTE | 2018-04-23 18:30 | NUR ---
ALERT. SITTING IN CHAIR. INDUSTRIAL COOK ASSIST TO RESTROOM. PATIENT THEN ASKS, "WILL YOU PAT ME ON THE BACK SO I CAN COUGH AND WHEN YOU GET THROUGH WITH THAT YOU CAN GIVE ME A BLOW JOB." INDUSTRIAL COOK LEAVES ROOM AND REPORTS TO STAFF. NURSE EXPLAIN TO PATIENT THAT BEHAVIOR IS UNACCEPTABLE. PATIENT THEN STATES, DON'T TELL MY . NOTIFY . SUGGESTED A MALE NURSE AND TECH BE ASSIGNED TO PATIENT DUE TO CONFUSION AT TIMES.
--- NOTE | 2018-04-23 19:39 | NUR ---
AWAKE AND ALERT UP IN BEDSIDE CHAIR AT THIS TIME LUNGS WITH RUBS ON EXHALE NASAL CANULA IS LAYING ON BED AND HE REFUSES TO WEAR IT AT THIS TIME CALL LIGHT IS IN REACH AT THIS TIME... NO IV ACESS IS NOTED AT THIS TIME
[2018-04-23 21:13] VITALS: BP 131/82
--- NOTE | 2018-04-23 22:08 | NUR ---
ASSISTED TO RESTROOM AND BACK TO CHAIR PT IS RESISTANT TO ASSIST..O2 WAS APPLIED AFTER
[2018-04-24 01:54] VITALS: BP 115/77
--- NOTE | 2018-04-24 04:24 | NUR ---
PATIENT RESTING COMFORTABLY IN BED. RESPIRATIONS ARE EVEN AND UNLABORED. NO S/S OF DISTRESS. NO C/O PAIN. CALL LIGHT WITHIN REACH. WILL CPOC.
[2018-04-24 04:50] LABS: BASOPHILS 0.1 % (0-2); EOSINOPHILS 0.5 % (0-7); HEMATOCRIT 30.8 % (42.0-54.0); HEMOGLOBIN 9.6 g/dL (13.5-17.5); IMMATURE GRANULOCYTES 0.4 % (0-5); LYMPHOCYTES 5.7 % (15-50); MCH 27.6 pg (26.0-34.0); MCHC 31.2 g/dL (31.0-37.0); MONOCYTES 8.8 % (2-11); NEUTROPHILS 84.5 % (40-80); PLATELET COUNT 291 10x3/uL (130-400); RBC 3.48 10x6/uL (4.20-6.10); RDW 19.5 % (11.5-14.5); WBC 14.3 10x3/uL (4.8-10.8)
[2018-04-24 05:12] LABS: MCV 88.5 fL (80.0-100.0)
[2018-04-24 05:13] VITALS: BP 130/84
[2018-04-24 05:16] LABS: ALBUMIN 2.1 g/dL (3.4-5.0); ALKALINE PHOSPHATASE 56 U/L (46-116); ALT (SGPT) 18 U/L (10-68); BILIRUBIN - TOTAL 0.35 mg/dL (0.2-1.3); CALC OSMOLALITY 281 mosm/kg (275-300); CALCIUM 8.3 mg/dL (8.5-10.1); CHLORIDE - SERUM 104 mmol/L (98-107); CREATININE - SERUM 0.7 mg/dL (0.6-1.3); GLUCOSE 105 mg/dL (74-106); MAGNESIUM - SERUM 1.5 mg/dL (1.8-2.4); POTASSIUM - SERUM 3.9 mmol/L (3.5-5.1); PROTEIN - SERUM 5.9 g/dL (6.4-8.2); SODIUM 142 mmol/L (136-145); UREA NITROGEN 10 mg/dL (7-18); eGFR NON AFRICAN AMERICAN > 90 mL/min (90-120)
--- NOTE | 2018-04-24 07:44 | NUR ---
REPORT RECEIVED. WILL CONTINUE WITH POC. PT CURRENTLY LYING SEMI FOWLERS. CALL LIHGT W/I REACH. AT BEDSIDE. RR EVEN AND UNLABORED ON 3L. NO PIV R/T REFUSAL. NO TELE R/T REFUSAL. NO S/S OF DISTRESS NOTED. PT DENIES ANY NEEDS AT THIS TIME. WILL CTM.
[2018-04-24 08:18] VITALS: BP 128/82
--- NOTE | 2018-04-24 10:20 | NUR ---
AM MEDICATIONS ADMINISTERED. FAMILY AT BEDSIDE. PT IS CONFUSED TO SITUATION, TIME, AND PLACE. WILL CTM. NO S/S OF DISTRESS NOTED.
[2018-04-24 11:13] VITALS: BP 111/56
[2018-04-24 15:24] VITALS: BP 95/65
--- NOTE | 2018-04-24 15:41 | NUR ---
I have reviewed this patient and I concur with the Shift Assessment completed by the Licensed Practical Nurse today this shift.
--- NOTE | 2018-04-24 15:57 | NUR ---
PT REFUSED PM LAB BLOOD DRAW.
[2018-04-24] MEDS ORDERED: IPRAT-ALBUT 0.5-3 ML UPD (17:45)
--- NOTE | 2018-04-24 18:21 | NUR ---
PT REFUSES IV AND IV FLUIDS. WILL CTM.
--- NOTE | 2018-04-24 20:41 | NUR ---
RESUMING PT CARE. PT IS ALERT SITTING CHAIR SIDE. PT IS ON 3 LITERS OF OXYGEN HIGH FLOW. NO ACUTE S/S OF DISTRESS NOTED AT THIS TIME. CALL LIGHT IN REACH AT CHAIR SIDE. WILL CONTINUE TO MONITOR PT AND FOLLOW PLAN OF CARE.
[2018-04-25 08:06] VITALS: BP 147/91
[2018-04-25 12:28] VITALS: BP 144/93
[2018-04-25 12:30] LABS: ALBUMIN 2.1 g/dL (3.4-5.0); ALKALINE PHOSPHATASE 60 U/L (46-116); ALT (SGPT) 19 U/L (10-68); BILIRUBIN - TOTAL 0.27 mg/dL (0.2-1.3); CALC OSMOLALITY 282 mosm/kg (275-300); CHLORIDE - SERUM 103 mmol/L (98-107); CREATININE - SERUM 0.8 mg/dL (0.6-1.3); GLUCOSE 94 mg/dL (74-106); MAGNESIUM - SERUM 1.7 mg/dL (1.8-2.4); POTASSIUM - SERUM 3.4 mmol/L (3.5-5.1); PROTEIN - SERUM 6.9 g/dL (6.4-8.2); SODIUM 142 mmol/L (136-145); UREA NITROGEN 12 mg/dL (7-18); eGFR NON AFRICAN AMERICAN > 90 mL/min (90-120)
[2018-04-25 12:35] LABS: BASOPHILS 0.3 % (0-2); EOSINOPHILS 0.9 % (0-7); HEMATOCRIT 29.7 % (42.0-54.0); HEMOGLOBIN 9.2 g/dL (13.5-17.5); IMMATURE GRANULOCYTES 0.3 % (0-5); LYMPHOCYTES 5.6 % (15-50); MCH 27.7 pg (26.0-34.0); MCV 89.5 fL (80.0-100.0); MEAN PLATELET VOLUME 10.4 fL (7.4-10.4); MONOCYTES 10.8 % (2-11); NEUTROPHILS 82.1 % (40-80); RBC 3.32 10x6/uL (4.20-6.10); RDW 19.4 % (11.5-14.5); WBC 11.3 10x3/uL (4.8-10.8)
[2018-04-25 12:38] LABS: PLATELET COUNT 374 10x3/uL (130-400)
[2018-04-25 14:42] VITALS: BP 135/76
[2018-04-25 20:00] VITALS: BP 117/69
[2018-04-26 00:30] VITALS: BP 135/76
--- NOTE | 2018-04-26 07:44 | NUR ---
REPORT RECEIVED. WILL CONTINUE WITH POC. PT CURRENTLY SITTING UP IN CHAIR. CALL LIGHT W/I REACH. PT IS AA BUT CONFUSED TO SITUATION, TIME, PLACE, AND PERSON. RR EVEN AND UNLABORED ON RA R/T PT TAKING 02 ON AND OFF. PT UP AND STANDING AT THE NURSES STATION UPON STARTING SHIFT. NO PIV R/T REFUSAL. NO TELE R/T REFUSAL. NO S/S OF DISTRESS NOTED AT THIS TIME. WILL CTM.
--- NOTE | 2018-04-26 07:57 | MORECARE ---
CASE MANAGEMENT DISCHARGE SUMMARY PATIENT: MELINA IVORY UNIT: [id number] ADM DATE: 04/17/18 AGE: 72 : 45 SEX: M ROOM/BED: D.2111 AUTHOR: MEREDITH WILSON PHYSICIAN: REFERRING PHYSICIAN: MELANIE BRADLEY MD DATE OF SERVICE: 04/26/18 Discharge Plan Patient Name: MELINA IVORY Facility: [facility]:[place] : 1945 Planned Disposition: Home Anticipated Discharge Date: 04/24/18 Discharge Date: Expected LOS: 7 Initial Reviewer: [email or web address] Initial Review Date: 04/17/2018 Generated: 04/26/18 8:57 am Comments DCP- Discharge Planning Updated by [email or web address]: Kevin Alvarez on 04/23/18 4:[address] Patient Name: MELINA IVORY Encounter No: [id number] : 1945 Primary Insurance: MEDICARE A & B Anticipated DC Date: 04-24-2018 Planned Disposition: Home DCP follow-up note: CM RECEIVED ORDER FOR REHAB OR HOME NEEDS. CM MET WITH PT AND SPOUSE IN ROOM. MELINA IVORY provided verbal consent to discuss current and ongoing needs with/in the presence of: SPOUSE, LIYAH. CM DISCUSSED AVAILABILITY OF REHAB SERVICES, PROVIDERS AND LOCATIONS. PT DOES NOT WANT REHAB, STATES HE IS GOING HOME. PT'S SPOUSE FEELS PT NEEDS REHAB. CM REVIEWED CHART NOTES. PT WAS WALKING 20 FEET WITH 25 PERCENT ASSISTANCE BUT REFUSED THERAPY ON 04-21 AND 04-22. CM EXPLAINED THAT PT WILL NOT BE ACCEPTED FOR REHAB ANYWHERE IF REFUSING THERAPY. PT STATES HE DID NOT REFUSE THERAPY AND WILL SHOW CM WHEN THERAPY COMES AGAIN TODAY THAT HE CAN WALK WELL ENOUGH TO GO HOME. CM DISCUSSED HOME HEALTH. PT DOES NOT THINK HE NEEDS HOME HEALTH EITHER. PT'S SPOUSE REPORTS PT HAS BEEN IN REHAB BEFORE AND WILL ENCOURAGE PT TO PARTICIPATE IN REHAB SERVICES. IMPORTANT MESSAGE FROM MEDICARE PROVIDED AND EXPLAINED. PT PLANS TO DISCHARGE HOME WITH SPOUSE, DENIES DISCHARGE NEEDS. Kevin Alvarez, CASE MANAGEMENT Appended by Kevin Alvarez on 04/23/2018 17:12 CDT: CM REVIEWED THERAPY NOTES, PT WALKED 150 FEET WITH 20 PERCENT ASSISTANCE WITH GOOD BALANCE NOTED. CM MET WITH PT IN ROOM. PT REPORTS TO CM THAT HE IS NOT GOING TO REHAB IN THE HOSPITAL OR HOME, HE IS GOING HOME TOMORROW. CM DISCUSSED AVAILABILTIY OF HOME HEALTH SERVICES. PT DECLINED HOME HEALTH REPORTING BOTH OF HIS DAUGHTERS ARE NURSES AND ASSIST HIM AT HOME. CM ASKED PT TO NOTIFY CM IF HE CHANGES HIS MIND OR HAS ANY NEEDS FOR DISCHARGE. PT DECLINES REHAB SERVICES INPATIENT AND CUSTODIAL. PT DECLINES HOME HEALTH. PT REPORTS HE WILL DISCHARGE HOME TOMORROW WITH HIS , REPORTS HAVING ADULT DAUGHTERS TO ASSIST HOME IF NEEDED. CM TO CONTINUE TO FOLLOW AND ASSIST IF NEEDED. KEVIN ALVAREZ, CASE MANAGEMENT DCP- Discharge Planning Updated by [id number]: Liya Holley on 04/18/18 1:[address] Patient Name: MELINA IVORY Admission Status: ER Accout number: [id number] Admission Date: 04-17-2018 : 1945 Admission Diagnosis: Attending: MELANIE BRADLEY Current LOS: 1 Anticipated DC Date: Planned Disposition: Home Primary Insurance: MEDICARE A & B Discharge Planning Comments: CM met with patient and family at bedside after obtaining verbal consent. Patient lives @ home with his spouse. Daughter Aggie states that the patient has home 02 but doesn't use it. He doesn't have portable 02. Aggie states that the day patient was brought into hospital she was checking into [facility] [phone]. CM called [facility] and spoke with Eboni she stated that unless patient has rehab trainer care coverage then their services would be private pay. CM will relay that information to the family. CM will continue to follow and assist as needed with discharge planning needs. Stonemason Helper: Liya Holley DCPIA - Discharge Planning Initial Assessment Updated by [email or web address]: Liya Holley on 04/18/18 3:35 pm * Is the patient Alert and Oriented? Yes * How many steps to enter\exit or inside your home? * PCP T[facility] * [facility] * Preadmission Environment Home with Family * ADLs Independent * Equipment Oxygen * List name and contact numbers for known caregivers / representatives who currently or will assist patient after discharge: Aggie Burger -daughter- [phone] Gabriella Rico -daughter- [phone] * Verbal permission to speak to the caregivers and representatives has been obtained from the patient. Yes * Community resources currently utilized None * Additional services required to return to the preadmission environment? No * Can the patient safely return to the preadmission environment? Yes * Has this patient been hospitalized within the prior 30 days at any hospital? No Coverage Notice Reviewer: [id number] Sheela Brown Kain Notice Issued Date-Time: 04/23/2018 9:20 Notice Type: IM Discharge Notice Notice Delivered To: Patient Relationship to Patient: Fish Seiner Name: Delivery Method: HAND - Hand Delivered Tawnya Days: Prior Verbal Notification: Recipient Understood Notice: Yes Recipient Signature: Yes Med Rec Note Co-signed by Attending: Coverage Notice Comment: Last DP export: 04/23/18 4:15 p Patient Name: MELINA IVORY Page 15633 at 0757 All edits/amendments must be made on the electronic document DICTATION DATE: 04/26/18755 STRATEGIC PARTNERSHIP MANAGER: NEHA 04/26/18 075 RPT#: [id number] DC DATE: STATUS: ADM IN [facility] [address] [place] [address] END OF REPORT
[2018-04-26 09:46] VITALS: BP 139/79
[2018-04-26] MEDS ORDERED: LEVAQUIN750 MG PO (10:55)
--- NOTE | 2018-04-26 11:27 | MORECARE ---
CASE MANAGEMENT DISCHARGE SUMMARY PATIENT: MELINA IVORY UNIT: [id number] ADM DATE: 04/17/18 AGE: 72 : 45 SEX: M ROOM/BED: D.2111 AUTHOR: STEVE,MEREDITH PHYSICIAN: REFERRING PHYSICIAN: MELANIE BRADLEY MD DATE OF SERVICE: 04/26/18 Discharge Plan Patient Name: MELINA IVORY Facility: [facility]:[place] : 1945 Planned Disposition: Home Anticipated Discharge Date: 04/26/18 Discharge Date: Expected LOS: 9 Initial Reviewer: [email or web address] Initial Review Date: 04/17/2018 Generated: 04/26/18 12:27 pm Comments DCP- Discharge Planning Updated by [email or web address]: Kevin Alvarez on 04/23/18 4:[address] Patient Name: MELINA IVORY Encounter No: [id number] : 1945 Primary Insurance: MEDICARE A & B Anticipated DC Date: 04-24-2018 Planned Disposition: Home DCP follow-up note: CM RECEIVED ORDER FOR REHAB OR HOME NEEDS. CM MET WITH PT AND SPOUSE IN ROOM. MELINA IVORY provided verbal consent to discuss current and ongoing needs with/in the presence of: SPOUSE, LIYAH. CM DISCUSSED AVAILABILITY OF REHAB SERVICES, PROVIDERS AND LOCATIONS. PT DOES NOT WANT REHAB, STATES HE IS GOING HOME. PT'S SPOUSE FEELS PT NEEDS REHAB. CM REVIEWED CHART NOTES. PT WAS WALKING 20 FEET WITH 25 PERCENT ASSISTANCE BUT REFUSED THERAPY ON 04-21 AND 04-22. CM EXPLAINED THAT PT WILL NOT BE ACCEPTED FOR REHAB ANYWHERE IF REFUSING THERAPY. PT STATES HE DID NOT REFUSE THERAPY AND WILL SHOW CM WHEN THERAPY COMES AGAIN TODAY THAT HE CAN WALK WELL ENOUGH TO GO HOME. CM DISCUSSED HOME HEALTH. PT DOES NOT THINK HE NEEDS HOME HEALTH EITHER. PT'S SPOUSE REPORTS PT HAS BEEN IN REHAB BEFORE AND WILL ENCOURAGE PT TO PARTICIPATE IN REHAB SERVICES. IMPORTANT MESSAGE FROM MEDICARE PROVIDED AND EXPLAINED. PT PLANS TO DISCHARGE HOME WITH SPOUSE, DENIES DISCHARGE NEEDS. Kevin Alvarez, CASE MANAGEMENT Appended by Kevin Alvarez on 04/23/2018 17:12 CDT: CM REVIEWED THERAPY NOTES, PT WALKED 150 FEET WITH 20 PERCENT ASSISTANCE WITH GOOD BALANCE NOTED. CM MET WITH PT IN ROOM. PT REPORTS TO CM THAT HE IS NOT GOING TO REHAB IN THE HOSPITAL OR HOME, HE IS GOING HOME TOMORROW. CM DISCUSSED AVAILABILTIY OF HOME HEALTH SERVICES. PT DECLINED HOME HEALTH REPORTING BOTH OF HIS DAUGHTERS ARE NURSES AND ASSIST HIM AT HOME. CM ASKED PT TO NOTIFY CM IF HE CHANGES HIS MIND OR HAS ANY NEEDS FOR DISCHARGE. PT DECLINES REHAB SERVICES INPATIENT AND CUSTODIAL. PT DECLINES HOME HEALTH. PT REPORTS HE WILL DISCHARGE HOME TOMORROW WITH HIS , REPORTS HAVING ADULT DAUGHTERS TO ASSIST HOME IF NEEDED. CM TO CONTINUE TO FOLLOW AND ASSIST IF NEEDED. KEVIN ALVAREZ, CASE MANAGEMENT DCP- Discharge Planning Updated by [email or web address]: Liya Holley on 04/18/18 1:[address] Patient Name: MELINA IVORY Admission Status: ER Accout number: [id number] Admission Date: 04-17-2018 : 1945 Admission Diagnosis: Attending: MELANIE BRADLEY Current LOS: 1 Anticipated DC Date: Planned Disposition: Home Primary Insurance: MEDICARE A & B Discharge Planning Comments: CM met with patient and family at bedside after obtaining verbal consent. Patient lives @ home with his spouse. Daughter Aggie states that the patient has home 02 but doesn't use it. He doesn't have portable 02. Aggie states that the day patient was brought into hospital she was checking into [facility] [phone]. CM called [facility] and spoke with Eboni she stated that unless patient has rat exterminator care coverage then their services would be private pay. CM will relay that information to the family. CM will continue to follow and assist as needed with discharge planning needs. Lacquer Polisher: Liya Holley DCPIA - Discharge Planning Initial Assessment Updated by [id number]: Liya Holley on 04/18/18 3:35 pm * Is the patient Alert and Oriented? Yes * How many steps to enter\exit or inside your home? * PCP Tomas * [facility] * Preadmission Environment Home with Family * ADLs Independent * Equipment Oxygen * List name and contact numbers for known caregivers / representatives who currently or will assist patient after discharge: Aggie Burger -daughter- [phone] Gabriella Rico -daughter- [phone] * Verbal permission to speak to the caregivers and representatives has been obtained from the patient. Yes * Community resources currently utilized None * Additional services required to return to the preadmission environment? No * Can the patient safely return to the preadmission environment? Yes * Has this patient been hospitalized within the prior 30 days at any hospital? No Coverage Notice Reviewer: [email or web address] Sheela Alvarez Notice Issued Date-Time: 04/23/2018 9:20 Notice Type: IM Discharge Notice Notice Delivered To: Patient Relationship to Patient: Shoe Shanker Name: Delivery Method: HAND - Hand Delivered Tawnya Days: Prior Verbal Notification: Recipient Understood Notice: Yes Recipient Signature: Yes Med Rec Note Co-signed by Attending: Coverage Notice Comment: Reviewer: [email or web address] Sheela Alvarez Notice Issued Date-Time: 04/26/2018 11:15 Notice Type: IM Discharge Notice Notice Delivered To: Patient Relationship to Patient: Shoe Shanker Name: Delivery Method: HAND - Hand Delivered Tawnya Days: Prior Verbal Notification: Recipient Understood Notice: Yes Recipient Signature: Yes Med Rec Note Co-signed by Attending: Coverage Notice Comment: Last DP export: 04/26/18 6:57 a Patient Name: MELINA IVORY Page 70205 at 1127 All edits/amendments must be made on the electronic document DICTATION DATE: 04/26/181125 FOURTH OFFICER: NEHA 04/26/181125 RPT#: [id number] DC DATE: STATUS: ADM IN [facility] [address] [place] [address] END OF REPORT
--- NOTE | 2018-04-26 11:35 | MORECARE ---
CASE MANAGEMENT DISCHARGE SUMMARY PATIENT: MELINA IVORY UNIT: [id number] ADM DATE: 04/17/18 AGE: 72 : 45 SEX: M ROOM/BED: D.2111 AUTHOR: MEREDITH WILSON PHYSICIAN: REFERRING PHYSICIAN: MELANIE BRADLEY MD DATE OF SERVICE: 04/26/18 Discharge Plan Patient Name: MELINA IVORY Facility: [facility]:[place] : 1945 Planned Disposition: Home Anticipated Discharge Date: 04/26/18 Discharge Date: Expected LOS: 9 Initial Reviewer: [email or web address] Initial Review Date: 04/17/2018 Generated: 04/26/18 12:35 pm Comments DCP- Discharge Planning Updated by [email or web address]: Booker Alvarez on 04/26/18 10:[address] Patient Name: MELINA IVORY Encounter No: [id number] : 1945 Primary Insurance: MEDICARE A & B Anticipated DC Date: 04-26-2018 Planned Disposition: Home DCP follow-up note: CM MET WITH PT AND SPOUSE IN ROOM TO DISCUSS DISCHARGE NEEDS AND PLANNING. PT'S SPOUSE REPORTS NOT SEEING DOCTOR FOR DAYS. PT REPORTS HE WAS TOLD HE WAS DISCHARGING HOME YESTERDAY AND WANTS DISCHARGED. CM NOTIFIED CHANDRAKANT MOELLER WHO MET WITH PT AND SPOUSE IN ROOM. CM DISCUSSED AVAILABILITY OF HOME HEALTH, REHAB SERVICES AND MEDICAL EQUIPMENT. PT DENIES DISCHARGE NEEDS. PT'S SPOUSE REPORTS HAVING OXYGEN FOR PATIENT. PT'S SPOUSE TO TRANSPORT HOME AT DISCHARGE. IMPORTANT MESSAGE FROM MEDICARE PROVIDED AND EXPLAINED. AMY Ramires DCP- Discharge Planning Updated by [id number]: Booker Alvarez on 04/23/18 4:[address] Patient Name: MELINA IVORY Encounter No: [id number] : 1945 Primary Insurance: MEDICARE A & B Anticipated DC Date: 04-24-2018 Planned Disposition: Home DCP follow-up note: CM RECEIVED ORDER FOR REHAB OR HOME NEEDS. CM MET WITH PT AND SPOUSE IN ROOM. MELINA IVORY provided verbal consent to discuss current and ongoing needs with/in the presence of: SPOUSELIYAH. CM DISCUSSED AVAILABILITY OF REHAB SERVICES, PROVIDERS AND LOCATIONS. PT DOES NOT WANT REHAB, STATES HE IS GOING HOME. PT'S SPOUSE FEELS PT NEEDS REHAB. CM REVIEWED CHART NOTES. PT WAS WALKING 20 FEET WITH 25 PERCENT ASSISTANCE BUT REFUSED THERAPY ON 04-21 AND 04-22. CM EXPLAINED THAT PT WILL NOT BE ACCEPTED FOR REHAB ANYWHERE IF REFUSING THERAPY. PT STATES HE DID NOT REFUSE THERAPY AND WILL SHOW CM WHEN THERAPY COMES AGAIN TODAY THAT HE CAN WALK WELL ENOUGH TO GO HOME. CM DISCUSSED HOME HEALTH. PT DOES NOT THINK HE NEEDS HOME HEALTH EITHER. PT'S SPOUSE REPORTS PT HAS BEEN IN REHAB BEFORE AND WILL ENCOURAGE PT TO PARTICIPATE IN REHAB SERVICES. IMPORTANT MESSAGE FROM MEDICARE PROVIDED AND EXPLAINED. PT PLANS TO DISCHARGE HOME WITH SPOUSE, DENIES DISCHARGE NEEDS. Booker Alvarez, CASE MANAGEMENT Appended by Booker Alvarez on 04/23/2018 17:12 CDT: CM REVIEWED THERAPY NOTES, PT WALKED 150 FEET WITH 20 PERCENT ASSISTANCE WITH GOOD BALANCE NOTED. CM MET WITH PT IN ROOM. PT REPORTS TO CM THAT HE IS NOT GOING TO REHAB IN THE HOSPITAL OR HOME, HE IS GOING HOME TOMORROW. CM DISCUSSED AVAILABILTIY OF HOME HEALTH SERVICES. PT DECLINED HOME HEALTH REPORTING BOTH OF HIS DAUGHTERS ARE NURSES AND ASSIST HIM AT HOME. CM ASKED PT TO NOTIFY CM IF HE CHANGES HIS MIND OR HAS ANY NEEDS FOR DISCHARGE. PT DECLINES REHAB SERVICES INPATIENT AND SHELTER. PT DECLINES HOME HEALTH. PT REPORTS HE WILL DISCHARGE HOME TOMORROW WITH HIS , REPORTS HAVING ADULT DAUGHTERS TO ASSIST HOME IF NEEDED. CM TO CONTINUE TO FOLLOW AND ASSIST IF NEEDED. BOOKER ALVAREZ, CASE MANAGEMENT DCP- Discharge Planning Updated by [id number]: Liya Kishan on 04/18/18 1:[address] Patient Name: MELINA IVORY Admission Status: ER Accout number: [id number] Admission Date: 04-17-2018 : 1945 Admission Diagnosis: Attending: MELANIE BRADLEY Current LOS: 1 Anticipated DC Date: Planned Disposition: Home Primary Insurance: MEDICARE A & B Discharge Planning Comments: CM met with patient and family at bedside after obtaining verbal consent. Patient lives @ home with his spouse. Daughter Aggie states that the patient has home 02 but doesn't use it. He doesn't have portable 02. Aggie states that the day patient was brought into hospital she was checking into [facility] [phone]. CM called [facility] and spoke with Eboni she stated that unless patient has exterminator care coverage then their services would be private pay. CM will relay that information to the family. CM will continue to follow and assist as needed with discharge planning needs. Plant Safety Leader: Liyamaura Arenassharmaine MARROQUINA - Discharge Planning Initial Assessment Updated by [email or web address]: Liya Holley on 04/18/18 3:35 pm * Is the patient Alert and Oriented? Yes * How many steps to enter\exit or inside your home? * PCP Tomas * Pharmacy [facility] * Preadmission Environment Home with Family * ADLs Independent * Equipment Oxygen * List name and contact numbers for known caregivers / representatives who currently or will assist patient after discharge: Aggie Burger -daughter- [phone] Gabriella Rico -daughter- [phone] * Verbal permission to speak to the caregivers and representatives has been obtained from the patient. Yes * Community resources currently utilized None * Additional services required to return to the preadmission environment? No * Can the patient safely return to the preadmission environment? Yes * Has this patient been hospitalized within the prior 30 days at any hospital? No Coverage Notice Reviewer: [email or web address] Alvarez Notice Issued Date-Time: 04/23/2018 9:20 Notice Type: IM Discharge Notice Notice Delivered To: Patient Relationship to Patient: Pouch Maker Name: Delivery Method: HAND - Hand Delivered Tawnya Days: Prior Verbal Notification: Recipient Understood Notice: Yes Recipient Signature: Yes Med Rec Note Co-signed by Attending: Coverage Notice Comment: Reviewer: [id number] Alvarez Notice Issued Date-Time: 04/26/2018 11:15 Notice Type: IM Discharge Notice Notice Delivered To: Patient Relationship to Patient: Pouch Maker Name: Delivery Method: HAND - Hand Delivered Tawnya Days: Prior Verbal Notification: Recipient Understood Notice: Yes Recipient Signature: Yes Med Rec Note Co-signed by Attending: Coverage Notice Comment: Last DP export: 04/26/18 10:27 a Patient Name: MELINA IVORY Page [id number] at 1135 All edits/amendments must be made on the electronic document DICTATION DATE: 04/26/18 1135 EMPLOYEE RELATIONS REPRESENTATIVE: NEHA 04/26/18 1135 RPT#: [id number] DC DATE: STATUS: ADM IN [facility] [address] [place] [address] END OF REPORT
[2018-04-26 12:00] VITALS: BP 120/55
--- NOTE | 2018-04-26 13:35 | NUR ---
PT DISCHARGED HOME VIA WHEELCHAIR WITH FAMILY. PT SIGNED PROPER DISCHARGE INSTRUCTION AND REMOVED ALL VALUABLES FROM THE ROOM.
== END 2018-04-26 13:36 | disposition home or self-care (01) | DRG 70 ==
LOC: D.ER 23:28 → D.M2 04-17 03:49 → D.ICU 04-17 03:49 → D.M2 04-19 10:34 → D.SDCHOLD 04-22 17:24 → D.M2 04-22 17:25
PROVIDERS: Family Medicine; Legal Medicine; ADMIT Emergency Medicine; ATTEND Emergency Medicine
DX: G93.41 Metabolic encephalopathy (principal); J96.21 Acute and chronic respiratory failure with hypoxia; I24.8 Other forms of acute ischemic heart disease; E87.3 Alkalosis; C34.90 Malignant neoplasm of unspecified part of unspecified bronchus or lung; J44.1 Chronic obstructive pulmonary disease with (acute) exacerbation; R79.89 Other specified abnormal findings of blood chemistry; R00.0 Tachycardia, unspecified; R41.82 Altered mental status, unspecified; D64.9 Anemia, unspecified; E87.6 Hypokalemia; I10 Essential (primary) hypertension; E78.5 Hyperlipidemia, unspecified; E83.42 Hypomagnesemia

== ENCOUNTER 2018-05-18 17:15 | Emergency (ER) | payer MEDICARE, OTHER ==
[~2018-05-18] VITALS: Ht 175.3 cm; Wt 55.8 kg
[~2018-05-18 17:15] MED LIST changes: +DECADRON4 MG PO; +FOLIC ACID1 MG PO; +IPRAT-ALBUT 0.5-3 ML UPD; +KLOR-CON 1010 MEQ PO; +LEVAQUIN750 MG PO; +LIPITOR10 MG PO; +MEGACE40 MG PO; +SINGULAIR10 MG PO; +ULTRAM50 MG PO
[2018-05-18 17:23] VITALS: Ht 175.3 cm; Wt 55.8 kg
[2018-05-18 20:19] VITALS: BP 151/79
== END 2018-05-18 20:19 | disposition home or self-care (01) ==
LOC: D.ER 17:15
DX: S01.81XA Laceration without foreign body of other part of head, initial encounter (principal); W18.31XA Fall on same level due to stepping on an object, initial encounter; Y93.89 Activity, other specified; Y92.89 Other specified places as the place of occurrence of the external cause; S20.211A Contusion of right front wall of thorax, initial encounter; Z79.01 Long term (current) use of anticoagulants